=== PATIENT | female | born 1980 | race Caucasian/White ===

== ENCOUNTER 2016-07-23 09:18 | Day surgery (SDC) | payer OTHER ==
--- NOTE | 2016-07-20 15:49 | HP ---
DATE OF SURGERY: 07/23/2016 HISTORY OF PRESENT ILLNESS: The patient is a 35 year-old female who had a nodule on her right flank/chest wall area subcutaneous nodule that is increasing in size, increasing discomfort. Sore feeling at this time. It has been increasing in size the past few months since March. She desires excision as it is increasingly symptomatic. PAST SURGICAL HISTORY: Right hip surgery in the past. Right hip repair January 2016. Hysterectomy. Cholecystectomy. Excision of right breast in the past. Cholecystectomy. Colonoscopy in the past. MEDICATIONS: No current medications. ALLERGIES: NKDA. FAMILY HISTORY: Noncontributory. SOCIAL HISTORY: Half pack a day smoker, denies alcohol abuse. PHYSICAL EXAMINATION: GENERAL: No acute distress. HEENT: Sclerae nonicteric. NECK: No JVD. CHEST: Equal excursion, nonlabored breathing. CVS: Regular rate and rhythm. ABDOMEN: Soft, nontender. No peritoneal signs. In the right flank/chest wall area subcutaneous nodule question whether lipoma or other nodule. EXTREMITIES: No significant edema. NEURO: Alert, moving extremities symmetrically. No gross motor deficits noted. IMPRESSION: Increasingly symptomatic enlarging right flank/lower chest wall area nodule question whether lipoma or other etiology. I feel she would benefit from excisional biopsy. Risks and benefits explained in detail including but not limited to bleeding or infection, small risk of wound dehiscence possibly requiring packing, and the fact that she will have scar in the area, general risk of aches, pains, burning or numbness possible long-term or chronic in nature. She also understands what we excise if it ends up being lipoma particular one will not recur as it will be excised or she could get similar subcutaneous nodules or lipomas adjacent to or elsewhere on her body. She understands and agrees to the planned procedure. Will proceed with excisional biopsy right flank/chest wall nodule or lipoma as an outpatient.
[~2016-07-23 09:18] MED LIST: DIPRIVAN 200 MG/20 ML IV ONE; Lactated Ringers 1,000 ML IV ONE; Lactated Ringers 1,000 ML IV SCH; SUBLIMAZE 100 MCG/2 ML IV ONE; TORAdol 30 mg Injection IV ONE; Versed 2 MG/2 ML Injection IV ONE; XYLOCAINE 1% HCL 20 ML MDV ONE; Zofran 4 MG/2 ML VIAL IV ONE
[2016-07-23] MEDS ORDERED: Sensorcaine 0.25% 10 ML ONE (10:10)
[2016-07-23] MEDS ORDERED: KEFZOL 1 GM ONE (10:12)
[2016-07-23] MEDS ORDERED: SUBLIMAZE 100 MCG/2 ML ONE (11:41)
[2016-07-23] MEDS ORDERED: NORCO 5/325 MG PO PRN (12:35)
[2016-07-23] MEDS ORDERED: MORPHINE SULFATE 4 MG INJ IV PRN (12:36)
--- NOTE | 2016-07-23 13:05 | OP ---
SURGERY DATE/TIME: 07/23/2016 1057 PREOPERATIVE DIAGNOSIS: Enlarging right flank/chest wall symptomatic subcutaneous mass. POSTOPERATIVE DIAGNOSIS: Enlarging right flank/chest wall symptomatic subcutaneous mass. PROCEDURE: Excisional biopsy of right flank/chest wall lipoma (approximately 4 cm) with intermediate closure. SURGEON: Dr. Lang Enriquez. FLIGHT ATTENDANT RAMP: Kayla Jones, Medical Student III. ANESTHESIA: General. ESTIMATED BLOOD LOSS: Minimal. INDICATIONS: As noted above. Risks and benefits explained in detail and not limited to and consent obtained. DESCRIPTION OF PROCEDURE AND FINDINGS: The patient taken to the operating room. General anesthesia was induced. Flank area was prepped and draped in usual sterile fashion. After official time out and no disagreement with planned procedure, incision made diagonally over the subcutaneous mass. Dissection carried down circumferentially around this elongated lipomatous density. It was carefully dissected off the underlying fascia and measures about 4 cm in size. It was passed off for pathology. Good hemostasis noted. The wound was then closed intermediate fashion in layers with the deep superficial subcu closed down to the level of fascia with interrupted 3-0 Vicryl, skin closed with 4-0 Vicryl, Steri-Strips and sterile dressing applied. The patient tolerated the procedure well. There were no immediate complications. There was no family available to discuss findings with at this time. She was transferred to the recovery room stable condition.
[2016-07-23 13:24] VITALS: BP 123/71; PULSE 64; O2SAT 99
== END 2016-07-23 13:30 | disposition home or self-care (01) ==
LOC: SDC 09:18
PROVIDERS: ATTEND Surgery
PROC: 0HQ5XZZ Repair Chest Skin, External Approach (ICD-10-PCS; principal; 2016-07-23)
PROC: 0HB5XZX Excision of Chest Skin, External Approach, Diagnostic (ICD-10-PCS; 2016-07-23)
DX: D17.1 Benign lipomatous neoplasm of skin and subcutaneous tissue of trunk (principal); R22.2 Localized swelling, mass and lump, trunk; Z72.0 Tobacco use; R20.8 Other disturbances of skin sensation
CPT/HCPCS: 00300; 36415; J0690; J1885; J2250; J2270; J2405; J2704; J3010

== ENCOUNTER 2016-09-11 17:19 | Emergency (ER) | payer OTHER ==
[2016-09-11 18:33] LABS: BASOPHIL % 0.4 % (0.0-0.4); Eosinophil % 3.9 % (0.00-5.0); Granulocytes % 56.4 % (36.0-66.0); Lymphocytes % 33.8 % (24.0-44.0); Mean Platelet Volume 9.7 fl (6-9.5); Monocytes % 5.5 % (0.0-12.0); Platelet Count 233 K/mm3 (150-450); Red Blood Count 4.84 M/mm3 (4.1-5.4); Red Cell Distribution Width 11.9 % (11.5-14.0); White Blood Count 8.6 K/mm3 (4.0-10.5)
[2016-09-11 18:42] LABS: ALBUMIN 4.6 g/dL (3.4-5.0); ALKALINE PHOSPHATASE 67 U/L (46-116); ANION GAP 14.8 MEQ/L (5-15); BILIRUBIN,TOTAL 0.6 mg/dL (0.2-1.0); BLOOD UREA NITROGEN 7 mg/dL (9-20); CHLORIDE 106 mEq/L (98-107); Carbon Dioxide 28.7 mEq/L (21-32); Glucose 100 MG/DL (70-110); Potassium 3.9 mEq/L (3.5-5.1); SGOT/AST 12 U/L (15-37); SGPT/ALT 13 U/L (12-78); SODIUM 146 mEq/L (136-145); Total Protein 7.8 gm/dL (6.4-8.2)
[2016-09-11 18:43] LABS: ACETAMINOPHEN < 2.0 ug/ml (10-30)
[2016-09-11 19:01] LABS: COMPLETE URINE MICROSCOPIC? YES; Collection Type CLEAN CATCH; Epithelial Cells FEW /HPF (FEW); Mucus SLIGHT /HPF (NEGATIVE)
[2016-09-11] MEDS ORDERED: ANTIVERT 25 MG PO ONE (19:19)
--- NOTE | 2016-09-11 19:26 | ERPHSYRPT ---
- History of Present Illness Time Seen by Provider: 09/11/16 19:05 Source: patient Exam Limitations: no limitations Patient Subjective Stated Complaint: PT REPORTS ALL OVER WEAKNESS-STATES THAT SHE GETS DIZZY IN THE SHOWER-STATES THAT SHE CAN NOT EAT OR DRINK ANYTHING-HAS NOT URINATED IN 2 DAYS-STATES THAT SHE HAS LOST 30 LBS-REPORTS HEADACHE BEGINNING 2 DAYS AGO-DENIES N/V/D-DENIES NUMBNESS OR TINLGING--PT STATES THAT SHE IS DEPRESSED SINCE HER DIVORCE BEGINNING A COUPLE OF MONTHS AGO Triage Nursing Assessment: PT PINK WARM ET DRY-A & O X 3-MOVING ALL EXTREMITIES WITH EASE-RESP EASY ET NONLABORED-PUPILS REACTIVE-ANSWERING ALL QUESTIONS WITH EASE-PT TEARFUL CRYING UPSET ET ANXIOUS DURING TRIAGE-PT DEFERRING QUESTIONS TO MOTHER NOTED ET ASKED TO STOP Physician History: PT STATES SHE HAS BEEN UNDER STRESS FOR THE PAST 6 MONTHS, IS GOING THROUGH A DIVORCE AND HAS 5 CHILDREN BY HER . FOR THE PAST 3 MONTHS PT HAS LOST 30# , HAS HAD INTERMITTENT SHORTNESS OF AIR AND AN INTERMITTENT FRONTAL HEADACHE WHICH HAS BEEN CONSTANT SINCE YESTERDAY AM. FOR THE PAST WEEK PT HAS NOT EATEN ANY SOLID FOOD. FOR THE PAST 2 DAYS PT HAS HAD DIZZINESS AND INSOMNIA. PT DENIES SUICIDAL AND HOMICIDAL IDEATION. Allergies/Adverse Reactions: No Known Drug Allergies Allergy (Verified 09/11/16 17:54) Home Medications: No Home Meds 1 ea MC UD 09/11/16 [History] Hx Tetanus, Diphtheria Vaccination/Date Given: Yes Hx Influenza Vaccination/Date Given: No Hx Pneumococcal Vaccination/Date Given: No Immunizations Up to Date: Yes - Review of Systems Constitutional: Weight Loss Respiratory: Dyspnea Abdominal/Gastrointestinal: No Abdominal Pain, No Vomiting, No Diarrhea Neurological: Dizziness, Headache Psychological: Other (STRESS; INSOMNIA.), No Suicidal Ideations, No Homicidal Ideations All Other Systems: Reviewed and Negative - Past Medical History Pertinent Past Medical History: Yes Neurological History: No Pertinent History ENT History: No Pertinent History Cardiac History: No Pertinent History Respiratory History: No Pertinent History Endocrine Medical History: No Pertinent History Musculoskeletal History: Other GI Medical History: Gallbladder Disease History: No Pertinent History Psycho-Social History: No Pertinent History Female Reproductive Disorders: Other Other Medical History: tubal times 2. hysterectomy 2009 - Past Surgical History Past Surgical History: Yes Neuro Surgical History: No Pertinent History Cardiac: No Pertinent History Respiratory: No Pertinent History Gastrointestinal: Cholecystectomy Genitourinary: No Pertinent History Musculoskeletal: Orthopedic Surgery Female Surgical History: Hysterectomy, Tubal Ligation, Other Other Surgical History: right hip labram repair 2016 milk duct removed from right breast noncancerouls - Social History Smoking Status: Current every day smoker How long have you smoked: 15 yrs Exposure to second hand smoke: No Drug Use: none Patient Lives Alone: No - Female History Hx Last Menstrual Period: HYSTERECTOMY Hx Now: No - Nursing Vital Signs Nursing Vital Signs: Initial Vital Signs Temperature 98.1 F Temperature Source Oral Pulse Rate 55 Respiratory Rate 16 Blood Pressure [] 112/51 Pain Intensity 8 - Physical Exam General Appearance: alert, anxiety Eye Exam: PERRL/EOMI, eyes nml inspection Ears, Nose, Throat Exam: TMs normal, pharynx normal, moist mucous membranes Neck Exam: normal inspection Respiratory Exam: lungs clear, airway intact Cardiovascular Exam: normal heart sounds Gastrointestinal/Abdomen Exam: soft, normal bowel sounds, No distention Back Exam: normal range of motion Extremity Exam: normal inspection, No pedal edema Neurologic Exam: alert, cooperative, sensation nml, No motor deficits Skin Exam: warm, dry SpO2 Interpretation: normal SpO2: 97 Oxygen Delivery: Room Air - Course Nursing assessment & vital signs reviewed: Yes EKG Interpreted by Me: RATE (67), Sinus Rhythm, NORMAL AXIS, NORMAL INTERVALS - Radiology Exams Chest X-ray Interpretation: Interpreted by me, No Pneumonia - CT Exams Head CT Interpretation: Discussed w/radiologist (STABLE NORMAL HEAD CT COMPARED WITH 06/22/15.) Ordered Tests: Active Orders 24 hr Category Date Time Status Clean Catch Urine Specimen STAT Care 09/11/16 18:21 Active EKG-ER Only STAT Care 09/11/16 19:02 Active IV Insertion STAT Care 09/11/16 18:21 Active CHEST 2 VIEWS (PA AND LAT) Stat Exams 09/11/16 19:18 Taken HEAD WITHOUT CONTRAST [CT] Stat Exams 09/11/16 18:22 Taken ACETAMINOPHEN Stat Lab 09/11/16 17:45 Completed AMYLASE Stat Lab 09/11/16 18:00 Completed CBC W DIFF Stat Lab 09/11/16 17:45 Completed CMP Stat Lab 09/11/16 17:45 Completed Ethyl Alcohol,Urine Stat Lab 09/11/16 18:30 Completed HCG QUALITATIVE,SERUM Stat Lab 09/11/16 18:00 Completed LIPASE Stat Lab 09/11/16 18:00 Completed MAG [MAGNESIUM] Stat Lab 09/11/16 18:00 Completed SALICYLATE Stat Lab 09/11/16 17:45 Completed T4 Stat Lab 09/11/16 18:00 Completed TROPONIN Stat Lab 09/11/16 18:00 Completed TSH [TSH, 3RD Generation] Stat Lab 09/11/16 18:00 Completed UA W/ MICROSCOPIC Stat Lab 09/11/16 18:30 Completed Urine Triage Profile Stat Lab 09/11/16 18:30 Completed Medication Summary Discontinued Medications Generic Name Dose Route Start Last Admin Trade Name Freq PRN Reason Stop Dose Admin Hydromorphone HCl 1 mg 09/11/16 19:34 09/11/16 19:41 Hydromorphone 1 Mg/Ml Ampule IV 09/11/16 19:35 1 mg STAT ONE Administration Hydromorphone HCl Confirm 09/11/16 19:36 Hydromorphone 1 Mg/Ml Ampule Administered 09/11/16 19:37 Dose 1 mg .ROUTE .STK-MED ONE Meclizine HCl 25 mg 09/11/16 19:19 09/11/16 19:31 Antivert 25 Mg PO 09/11/16 19:20 25 mg STAT ONE Administration Meclizine HCl Confirm 09/11/16 19:28 Antivert 25 Mg Administered 09/11/16 19:29 Dose 25 mg .ROUTE .STK-MED ONE Promethazine HCl 12.5 mg 09/11/16 19:34 09/11/16 19:41 Phenergan 25 Mg Inj IV 09/11/16 19:35 12.5 mg STAT ONE Administration Promethazine HCl Confirm 09/11/16 19:36 Phenergan 25 Mg Inj Administered 09/11/16 19:37 Dose 25 mg .ROUTE .STK-MED ONE Lab/Rad Data: Laboratory Result Diagrams 09/11/16 17:45 09/11/16 17:45 Laboratory Results 09/11/16 09/11/16 09/11/16 Range/Units 18:30 18:30 18:30 WBC (4.0-10.5) K/mm3 RBC (4.1-5.4) M/mm3 Hgb (12.0-16.0) gm/dl Hct (35-47) % MCV (78-100) fl MCH (26-32) pg MCHC (32-36) g/dl RDW (11.5-14.0) % Plt Count (150-450) K/mm3 MPV (6-9.5) fl Gran % (36.0-66.0) % Lymphocytes % (24.0-44.0) % Monocytes % (0.0-12.0) % Eosinophils % (0.00-5.0) % Basophils % (0.0-0.4) % Basophils # (0-0.4) Sodium (136-145) mEq/L Potassium (3.5-5.1) mEq/L Chloride (98-107) mEq/L Carbon Dioxide (21-32) mEq/L Anion Gap (5-15) MEQ/L BUN (9-20) mg/dL Creatinine (0.55-1.30) mg/dl Estimated GFR ML/MIN Glucose (70-110) MG/DL Calcium (8.5-10.1) mg/dL Magnesium (1.8-2.4) mg/dL Total Bilirubin (0.2-1.0) mg/dL AST (15-37) U/L ALT (12-78) U/L Alkaline Phosphatase (46-116) U/L Troponin I (0.000-0.056) ng/ml Serum Total Protein (6.4-8.2) gm/dL Albumin (3.4-5.0) g/dL Amylase (25-115) U/L Lipase (73-393) U/L Thyroxine (T4) (4.7-13.3) UG/DL TSH 3rd Generation (0.358-3.740) mIU/L Serum , Qual (Negative) Ur Collection Type CLEAN CATCH Urine Color YELLOW (YELLOW) Urine Appearance CLOUDY (CLEAR) Urine pH 9.0 (5-6) Ur Specific Gary 1.015 (1.005-1.025) Urine Protein 30 (Negative) Urine Glucose (UA) NEGATIVE (NEGATIVE) mg/dL Urine Ketones NEGATIVE (NEGATIVE) Urine Nitrite NEGATIVE (NEGATIVE) Urine Bilirubin NEGATIVE (NEGATIVE) Urine Urobilinogen 1 (0-1) mg/dL Urine WBC (Auto) NEGATIVE (NEGATIVE) Urine RBC (Auto) NEGATIVE (0-5) Colten/ul Ur Epithelial Cells FEW (FEW) /HPF Amorphous Crystals MANY (NEGATIVE) /HPF Urine Mucus SLIGHT (NEGATIVE) /HPF Salicylates (2.8-20.0) mg/dl Urine Opiates Level NEG. (NEGATIVE) Ur Methadone NEG. (NEGATIVE) Acetaminophen (10-30) ug/ml Urine Barbiturates NEG. (NEGATIVE) Ur Phencyclidine (PCP) NEG. (NEGATIVE) Urine Amphetamine NEG. (NEGATIVE) U Benzodiazepine Level NEG. (NEGATIVE) Urine Cocaine NEG. (NEGATIVE) Urine Marijuana (THC) NEG. (NEGATIVE) Urine Ethyl Alcohol 3 (0.00-20) mg/dl Specimen Received 09/11/16:1830 09/11/16 09/11/16 09/11/16 Range/Units 18:00 18:00 18:00 WBC (4.0-10.5) K/mm3 RBC (4.1-5.4) M/mm3 Hgb (12.0-16.0) gm/dl Hct (35-47) % MCV (78-100) fl MCH (26-32) pg MCHC (32-36) g/dl RDW (11.5-14.0) % Plt Count (150-450) K/mm3 MPV (6-9.5) fl Gran % (36.0-66.0) % Lymphocytes % (24.0-44.0) % Monocytes % (0.0-12.0) % Eosinophils % (0.00-5.0) % Basophils % (0.0-0.4) % Basophils # (0-0.4) Sodium (136-145) mEq/L Potassium (3.5-5.1) mEq/L Chloride (98-107) mEq/L Carbon Dioxide (21-32) mEq/L Anion Gap (5-15) MEQ/L BUN (9-20) mg/dL Creatinine (0.55-1.30) mg/dl Estimated GFR ML/MIN Glucose (70-110) MG/DL Calcium (8.5-10.1) mg/dL Magnesium 2.1 (1.8-2.4) mg/dL Total Bilirubin (0.2-1.0) mg/dL AST (15-37) U/L ALT (12-78) U/L Alkaline Phosphatase (46-116) U/L Troponin I < 0.017 (0.000-0.056) ng/ml Serum Total Protein (6.4-8.2) gm/dL Albumin (3.4-5.0) g/dL Amylase 50 (25-115) U/L Lipase 107 (73-393) U/L Thyroxine (T4) 7.9 (4.7-13.3) UG/DL TSH 3rd Generation 1.199 (0.358-3.740) mIU/L Serum , Qual NEGATIVE (Negative) Ur Collection Type Urine Color (YELLOW) Urine Appearance (CLEAR) Urine pH (5-6) Ur Specific Gary (1.005-1.025) Urine Protein (Negative) Urine Glucose (UA) (NEGATIVE) mg/dL Urine Ketones (NEGATIVE) Urine Nitrite (NEGATIVE) Urine Bilirubin (NEGATIVE) Urine Urobilinogen (0-1) mg/dL Urine WBC (Auto) (NEGATIVE) Urine RBC (Auto) (0-5) Colten/ul Ur Epithelial Cells (FEW) /HPF Amorphous Crystals (NEGATIVE) /HPF Urine Mucus (NEGATIVE) /HPF Salicylates (2.8-20.0) mg/dl Urine Opiates Level (NEGATIVE) Ur Methadone (NEGATIVE) Acetaminophen (10-30) ug/ml Urine Barbiturates (NEGATIVE) Ur Phencyclidine (PCP) (NEGATIVE) Urine Amphetamine (NEGATIVE) U Benzodiazepine Level (NEGATIVE) Urine Cocaine (NEGATIVE) Urine Marijuana (THC) (NEGATIVE) Urine Ethyl Alcohol (0.00-20) mg/dl Specimen Received 09/11/16 09/11/16 09/11/16 Range/Units 17:45 17:45 17:45 WBC 8.6 (4.0-10.5) K/mm3 RBC 4.84 (4.1-5.4) M/mm3 Hgb 15.0 (12.0-16.0) gm/dl Hct 43.1 (35-47) % MCV 89.0 (78-100) fl MCH 31.0 (26-32) pg MCHC 34.8 (32-36) g/dl RDW 11.9 (11.5-14.0) % Plt Count 233 (150-450) K/mm3 MPV 9.7 H (6-9.5) fl Gran % 56.4 (36.0-66.0) % Lymphocytes % 33.8 (24.0-44.0) % Monocytes % 5.5 (0.0-12.0) % Eosinophils % 3.9 (0.00-5.0) % Basophils % 0.4 (0.0-0.4) % Basophils # 0.03 (0-0.4) Sodium 146 H (136-145) mEq/L Potassium 3.9 (3.5-5.1) mEq/L Chloride 106 (98-107) mEq/L Carbon Dioxide 28.7 (21-32) mEq/L Anion Gap 14.8 (5-15) MEQ/L BUN 7 L (9-20) mg/dL Creatinine 0.77 (0.55-1.30) mg/dl Estimated GFR > 60 ML/MIN Glucose 100 (70-110) MG/DL Calcium 8.9 (8.5-10.1) mg/dL Magnesium (1.8-2.4) mg/dL Total Bilirubin 0.6 (0.2-1.0) mg/dL AST 12 L (15-37) U/L ALT 13 (12-78) U/L Alkaline Phosphatase 67 (46-116) U/L Troponin I (0.000-0.056) ng/ml Serum Total Protein 7.8 (6.4-8.2) gm/dL Albumin 4.6 (3.4-5.0) g/dL Amylase (25-115) U/L Lipase (73-393) U/L Thyroxine (T4) (4.7-13.3) UG/DL TSH 3rd Generation (0.358-3.740) mIU/L Serum , Qual (Negative) Ur Collection Type Urine Color (YELLOW) Urine Appearance (CLEAR) Urine pH (5-6) Ur Specific Gary (1.005-1.025) Urine Protein (Negative) Urine Glucose (UA) (NEGATIVE) mg/dL Urine Ketones (NEGATIVE) Urine Nitrite (NEGATIVE) Urine Bilirubin (NEGATIVE) Urine Urobilinogen (0-1) mg/dL Urine WBC (Auto) (NEGATIVE) Urine RBC (Auto) (0-5) Colten/ul Ur Epithelial Cells (FEW) /HPF Amorphous Crystals (NEGATIVE) /HPF Urine Mucus (NEGATIVE) /HPF Salicylates < 2.8 L (2.8-20.0) mg/dl Urine Opiates Level (NEGATIVE) Ur Methadone (NEGATIVE) Acetaminophen < 2.0 L (10-30) ug/ml Urine Barbiturates (NEGATIVE) Ur Phencyclidine (PCP) (NEGATIVE) Urine Amphetamine (NEGATIVE) U Benzodiazepine Level (NEGATIVE) Urine Cocaine (NEGATIVE) Urine Marijuana (THC) (NEGATIVE) Urine Ethyl Alcohol (0.00-20) mg/dl Specimen Received - Progress Progress Note: 09/11/16 20:13 PT REFUSES TELE-MENTAL. - Departure Time of Disposition: 20:14 Departure Disposition: Home Clinical Impression: ANXIETY, HEADACHE, DIZZINESS Condition: Fair Critical Care Time: No Instructions: Anxiety -- Adult Additional Instructions: FOLLOW UP WITH PRIVATE DOCTOR TOMORROW. Prescriptions: Meclizine HCl 25 mg [Antivert 25 mg] 25 mg PO Q8HPRN PRN #20 tablet PRN Reason: Dizziness
[2016-09-11] MEDS ORDERED: ANTIVERT 25 MG ONE (19:28)
[2016-09-11] MEDS ORDERED: Hydromorphone 1 mg/ml Ampule IV ONE (19:34)
[2016-09-11] MEDS ORDERED: Phenergan 25 MG INJ IV ONE (19:34)
[2016-09-11] MEDS ORDERED: Phenergan 25 MG INJ ONE (19:36)
[2016-09-11] MEDS ORDERED: Hydromorphone 1 mg/ml Ampule ONE (19:36)
[2016-09-11 19:48] LABS: MAGNESIUM 2.1 mg/dL (1.8-2.4)
[2016-09-11 20:11] VITALS: BP 112/51; PULSE 55
[2016-09-11 20:14] VITALS: O2SAT 97
--- NOTE | 2016-09-12 08:31 | XRAY ---
Indication: Headache, dizziness, and nausea. Multiple contiguous axial images obtained through the head without contrast. Comparison: June 22, 2015. Again normal appearing brain parenchyma, ventricles, and bony calvarium. Visualized paranasal sinuses and mastoid air cells are pneumatized and clear. Impression: Stable normal CT head without contrast exam. CT DI 71.08
--- NOTE | 2016-09-12 08:53 | XRAY ---
Indication: Short of breath. Comparison: April 17, 2016. PA/lateral chest again demonstrates normal heart, lungs, and bony thorax.
== END 2016-09-11 20:26 | disposition home or self-care (01) ==
LOC: ED 17:19
DX: F41.9 Anxiety disorder, unspecified (principal); R51 Headache; R42 Dizziness and giddiness; F51.02 Adjustment insomnia; R06.00 Dyspnea, unspecified
CPT/HCPCS: 36000; 36415; 70450; 71020; 80053; 80307; 80320; 81000; 82150; 83690; 83735; 83986; 84436; 84443; 84484; 84703; 85025; 93005; 96374; 96375; 99284; 99285; G0481; J1170; J2550; A9270-GY

== ENCOUNTER 2016-10-22 10:08 | Emergency (ER) | payer OTHER ==
--- NOTE | 2016-10-22 10:45 | ERPHSYRPT ---
- History of Present Illness Time Seen by Provider: 10/22/16 10:32 Source: patient Exam Limitations: no limitations Patient Subjective Stated Complaint: PT REPORTS COUGH-N/V/D-ABD SORENESS- REPORTS VOMITING GALLBLADDER-DAUGHTER HAS JUST BEEN DX WITH FLU B ET MONO Triage Nursing Assessment: PT PINK WARM ET [id number] ALL QUESTIONS CORRECTLY EXCEPT WHAT MEDS SHE TOOK THIS AM-RESP FAST BUT NONLABORED-PUPILS RESPONSIVE-MOVING ALL EXTREMITITES WITH EASE Physician History: The patient is a 36-year-old female with her mother complaining that she developed a headache and a cough 4-5 days ago. The headache is worsening. She states she's been feverish with a temperature of up to 103. For the past 2 days she's had nausea vomiting and diarrhea. Her daughter was diagnosed with influenza B 5 to 7 days ago. Her daughter is also diagnosed with mono. The patient's past medical history is significant for depression. Timing/Duration: day(s) (5) Cough Quality/Degree: moderate, dry cough Possible Cause: occasional episodes, smoke exposure Modifying Factors: Improves With: activity, coughing Associated Symptoms: fever, cough, headache, muscle aches, nasal congestion, sore throat Allergies/Adverse Reactions: No Known Drug Allergies Allergy (Verified 10/22/16 10:23) Home Medications: Venlafaxine HCl [Effexor] 75 mg PO HS 10/22/16 [History] Venlafaxine HCl [Effexor] 175 mg PO DAILY 10/22/16 [History] Hx Tetanus, Diphtheria Vaccination/Date Given: No Hx Influenza Vaccination/Date Given: No Hx Pneumococcal Vaccination/Date Given: No Immunizations Up to Date: Yes - Review of Systems Constitutional: Fever Eyes: Eye Pain Ears, Nose, & Throat: Nose Congestion, Nose Discharge, Throat Pain Respiratory: Cough Cardiac: No Chest Pain, No Edema, No Syncope Abdominal/Gastrointestinal: Nausea, Vomiting, Diarrhea Genitourinary Symptoms: No Dysuria Musculoskeletal: No Back Pain, No Neck Pain Skin: No Rash Neurological: No Dizziness, No Focal Weakness, No Sensory Changes Psychological: Depression Endocrine: No Symptoms Hematologic/Lymphatic: No Symptoms Immunological/Allergic: No Symptoms All Other Systems: Reviewed and Negative - Past Medical History Pertinent Past Medical History: Yes Neurological History: No Pertinent History ENT History: No Pertinent History Cardiac History: No Pertinent History Respiratory History: No Pertinent History Endocrine Medical History: No Pertinent History Musculoskeletal History: Other GI Medical History: Gallbladder Disease History: No Pertinent History Psycho-Social History: No Pertinent History Female Reproductive Disorders: Other Other Medical History: tubal times 2. hysterectomy 2010 - Past Surgical History Past Surgical History: Yes Neuro Surgical History: No Pertinent History Cardiac: No Pertinent History Respiratory: No Pertinent History Gastrointestinal: Cholecystectomy Genitourinary: No Pertinent History Musculoskeletal: Orthopedic Surgery Female Surgical History: Hysterectomy, Tubal Ligation, Other Other Surgical History: right hip labram repair 2016 milk duct removed from right breast noncancerouls - Social History Smoking Status: Current every day smoker How long have you smoked: YRS Exposure to second hand smoke: Yes Drug Use: none Patient Lives Alone: No - Female History Hx Last Menstrual Period: HYSTERECTOMY Hx Now: No - Nursing Vital Signs Nursing Vital Signs: Initial Vital Signs Temperature 97.7 F Temperature Source Oral Pulse Rate 74 Respiratory Rate 18 Blood Pressure [] 107/54 Pain Intensity 9 - Physical Exam General Appearance: mild distress Eye Exam: PERRL/EOMI, eyes nml inspection Ears, Nose, Throat Exam: normal ENT inspection, TMs normal, pharynx normal, moist mucous membranes Neck Exam: normal inspection, non-tender, supple, full range of motion Respiratory Exam: normal breath sounds, lungs clear, No respiratory distress Cardiovascular Exam: regular rate/rhythm, normal heart sounds Gastrointestinal/Abdomen Exam: tenderness (epigastric) Pelvic Exam: not done Rectal Exam: not done Back Exam: normal inspection, No CVA tenderness, No vertebral tenderness Extremity Exam: normal inspection, normal range of motion Neurologic Exam: alert, 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, cooperative, normal mood/affect, sensation nml, No motor deficits Skin Exam: normal color, warm, dry, No rash Lymphatic Exam: No adenopathy SpO2 Interpretation: normal SpO2: 100 Oxygen Delivery: Room Air - Radiology Exams Chest X-ray Interpretation: Teleradiologist Report, Negative (per Dr Mello) Ordered Tests: Active Orders 24 hr Category Date Time Status IV Insertion STAT Care 10/22/16 10:48 Active CHEST 2 VIEWS (PA AND LAT) Stat Exams 10/22/16 10:50 Completed BMP Stat Lab 10/22/16 11:10 Completed CBC W DIFF Stat Lab 10/22/16 11:10 Completed Price Screen Stat Lab 10/22/16 11:10 Completed UA Stat Lab 10/22/16 10:49 Ordered Medication Summary Discontinued Medications Generic Name Dose Route Start Last Admin Trade Name Kelly PRN Reason Stop Dose Admin Sodium Chloride 1,000 mls @ 999 mls/hr 10/22/16 10:48 10/22/16 11:10 Sodium Chloride 0.9% 1000 Ml IV 10/22/16 11:48 999 mls/hr .Q1H1M STA Administration Sodium Chloride Confirm 10/22/16 11:08 Sodium Chloride 0.9% 1000 Ml Administered 10/22/16 11:09 Dose 1,000 mls @ ud .ROUTE .STK-MED ONE Ketorolac Tromethamine 30 mg 10/22/16 10:51 10/22/16 11:10 Toradol 30 Mg Injection IV 10/22/16 10:52 30 mg STAT ONE Administration Ketorolac Tromethamine Confirm 10/22/16 11:08 Toradol 30 Mg Injection Administered 10/22/16 11:09 Dose 30 mg .ROUTE .STK-MED ONE Ondansetron HCl 4 mg 10/22/16 10:52 10/22/16 11:10 Zofran 4 Mg/2 Ml Vial IV 10/22/16 10:53 4 mg STAT ONE Administration Ondansetron HCl Confirm 10/22/16 11:08 Zofran 4 Mg/2 Ml Vial Administered 10/22/16 11:09 Dose 4 mg .ROUTE .STK-MED ONE Potassium Chloride 20 meq 10/22/16 12:20 10/22/16 12:27 Klor Con 10 Meq PO 10/22/16 12:21 20 meq STAT ONE Administration Potassium Chloride Confirm 10/22/16 12:26 Klor Con 10 Meq Administered 10/22/16 12:27 Dose 20 meq PO .STK-MED ONE Lab/Rad Data: Laboratory Result Diagrams 10/22/16 11:10 10/22/16 11:10 Laboratory Results 10/22/16 10/22/16 10/22/16 Range/Units 11:10 11:10 11:10 WBC (4.0-10.5) K/mm3 RBC (4.1-5.4) M/mm3 Hgb (12.0-16.0) gm/dl Hct (35-47) % MCV (78-100) fl MCH (26-32) pg MCHC (32-36) g/dl RDW (11.5-14.0) % Plt Count (150-450) K/mm3 MPV (6-9.5) fl Gran % (36.0-66.0) % Lymphocytes % (24.0-44.0) % Monocytes % (0.0-12.0) % Eosinophils % (0.00-5.0) % Basophils % (0.0-0.4) % Basophils # (0-0.4) Sodium 138 (136-145) mEq/L Potassium 3.3 L (3.5-5.1) mEq/L Chloride 99 (98-107) mEq/L Carbon Dioxide 27.7 (21-32) mEq/L Anion Gap 14.3 (5-15) MEQ/L BUN 14 (9-20) mg/dL Creatinine 0.85 (0.55-1.30) mg/dl Estimated GFR > 60 ML/MIN Glucose 86 (70-110) MG/DL Calcium 9.2 (8.5-10.1) mg/dL Monoscreen NEGATIVE (Negative) Influenza Type A Ag NEGATIVE (NEGATIVE) Influenza Type B Ag POSITIVE (NEGATIVE) RSV (PCR) NEGATIVE (Negative) 10/22/16 Range/Units 11:10 WBC 3.5 L (4.0-10.5) K/mm3 RBC 5.09 (4.1-5.4) M/mm3 Hgb 15.7 (12.0-16.0) gm/dl Hct 44.3 (35-47) % MCV 87.0 (78-100) fl MCH 30.8 (26-32) pg MCHC 35.4 (32-36) g/dl RDW 11.9 (11.5-14.0) % Plt Count 107 L (150-450) K/mm3 MPV 10.4 H (6-9.5) fl Gran % 48.4 (36.0-66.0) % Lymphocytes % 44.4 H (24.0-44.0) % Monocytes % 6.9 (0.0-12.0) % Eosinophils % 0.3 (0.00-5.0) % Basophils % 0.0 (0.0-0.4) % Basophils # 0 (0-0.4) Sodium (136-145) mEq/L Potassium (3.5-5.1) mEq/L Chloride (98-107) mEq/L Carbon Dioxide (21-32) mEq/L Anion Gap (5-15) MEQ/L BUN (9-20) mg/dL Creatinine (0.55-1.30) mg/dl Estimated GFR ML/MIN Glucose (70-110) MG/DL Calcium (8.5-10.1) mg/dL Monoscreen (Negative) Influenza Type A Ag (NEGATIVE) Influenza Type B Ag (NEGATIVE) RSV (PCR) (Negative) - Progress Progress: improved Air Movement: good Blood Culture(s) Obtained: No Antibiotics given: No Counseled pt/family regarding: lab results, diagnosis, rad results - Departure Time of Disposition: 12:48 Departure Disposition: Home Clinical Impression: Influenza B, Hypokalemia, Vomiting and diarrhea Condition: Stable Critical Care Time: No Additional Instructions: You have an influenza B infection. You were treated with Zofran 4 mg IV and fluids by IV in the ER. You were also given Toradol 30 mg IV. Your serum potassium level was mildly low and you were given potassium 20 mEq. Take Zofran 4 mg every 6 hours as needed for nausea and vomiting. Start with a clear liquid diet and advance as tolerated. Take Tylenol and ibuprofen as needed. Follow-up as needed. Prescriptions: Ondansetron [Zofran Odt] 4 mg PO Q6H PRN PRN #10 tab.rapdis PRN Reason: Nausea
[2016-10-22] MEDS ORDERED: Sodium Chloride 0.9% 1000 ML 1,000 ML IV STA (10:48)
[2016-10-22] MEDS ORDERED: TORAdol 30 mg Injection IV ONE (10:51)
[2016-10-22] MEDS ORDERED: Zofran 4 MG/2 ML VIAL IV ONE (10:52)
--- NOTE | 2016-10-22 11:06 | XRAY ---
Indication: Cough. Flulike symptoms. Comparison: September 11, 2016. PA/lateral chest again demonstrates normal heart, lungs, and bony thorax.
[2016-10-22] MEDS ORDERED: TORAdol 30 mg Injection ONE (11:08)
[2016-10-22] MEDS ORDERED: Zofran 4 MG/2 ML VIAL ONE (11:08)
[2016-10-22] MEDS ORDERED: Sodium Chloride 0.9% 1000 ML 1,000 ML ONE (11:08)
[2016-10-22 11:22] LABS: Eosinophil % 0.3 % (0.00-5.0); Granulocytes % 48.4 % (36.0-66.0); Lymphocytes % 44.4 % (24.0-44.0); Mean Corpuscular Hemoglobin 30.8 pg (26-32); Mean Platelet Volume 10.4 fl (6-9.5); Monocytes % 6.9 % (0.0-12.0); Platelet Count 107 K/mm3 (150-450); Red Blood Count 5.09 M/mm3 (4.1-5.4); Red Cell Distribution Width 11.9 % (11.5-14.0); White Blood Count 3.5 K/mm3 (4.0-10.5)
[2016-10-22 11:32] LABS: ANION GAP 14.3 MEQ/L (5-15); BLOOD UREA NITROGEN 14 mg/dL (9-20); CHLORIDE 99 mEq/L (98-107); Carbon Dioxide 27.7 mEq/L (21-32); Glucose 86 MG/DL (70-110); Potassium 3.3 mEq/L (3.5-5.1); SODIUM 138 mEq/L (136-145)
[2016-10-22] MEDS ORDERED: Klor Con 10 MEQ PO ONE ×2 (12:20→12:26)
[2016-10-22 13:05] VITALS: O2SAT 99
[2016-10-22 13:12] VITALS: BP 136/68; PULSE 72
== END 2016-10-22 13:12 | disposition home or self-care (01) ==
LOC: ED 10:08
DX: J11.1 Influenza due to unidentified influenza virus with other respiratory manifestations (principal); E87.6 Hypokalemia; R11.2 Nausea with vomiting, unspecified; R19.7 Diarrhea, unspecified; R05 Cough; R51 Headache
CPT/HCPCS: 36000; 36415; 71020; 80048; 85025; 86308; 87631; 96360; 96374; 96375; 99284; J1885; J2405; A9270-GY

== ENCOUNTER 2017-01-27 15:47 | Emergency (ER) | payer OTHER ==
[2017-01-27] MEDS ORDERED: Sodium Chloride 0.9% 1000 ML 1,000 ML IV STA ×2 (16:13→17:59)
[2017-01-27] MEDS ORDERED: Zofran 4 MG/2 ML VIAL IV ONE (16:13)
[2017-01-27] MEDS ORDERED: Sodium Chloride 0.9% 1000 ML 1,000 ML ONE ×2 (16:18→18:00)
[2017-01-27] MEDS ORDERED: Zofran 4 MG/2 ML VIAL ONE (16:18)
--- NOTE | 2017-01-27 16:20 | ERPHSYRPT ---
- History of Present Illness Time Seen by Provider: 01/27/17 16:05 Source: patient Exam Limitations: clinical condition Patient Subjective Stated Complaint: states she thinks she has a uti. left flank pain for two weeks. states had uti one month ago but didn't get treated for it. Triage Nursing Assessment: ambulated to room without difficulty. skin w/d, color normal, resp easy. patient lying in bed with eyes closed. urine is slightly cloudy, yellow Physician History: PATIENT COMPLAINS OF LEFT FLANK PAIN FOR 2 WEEKS, FOUL URINE ODOR, FREQUENCY, DYSURIA FOR 1 WEEK. STATES PAIN IS SEVERE. DENIES ASSOCIATED FEVER OR CHILLS. Timing/Duration: week(s) Activites at Onset: none Quality: throbbing Onset Location: left flank Pain Radiation: none Severity of Pain-Max: severe Severity of Pain-Current: severe Sexual intercourse history: non-contributory Allergies/Adverse Reactions: No Known Drug Allergies Allergy (Verified 01/27/17 15:58) Home Medications: Alprazolam 1 mg [Xanax 1 mg] 1 mg PO TID PRN 01/27/17 [History] Aspirin [[place] Aspirin] 81 mg PO DAILY 01/27/17 [History] Duloxetine HCl 30 mg [Cymbalta 30 MG Capsule] 30 mg PO DAILY 01/27/17 [ History] Estradiol 1 mg [Estrace 1 mg] 4 mg PO DAILY 01/27/17 [History] Hx Tetanus, Diphtheria Vaccination/Date Given: No Hx Influenza Vaccination/Date Given: No Hx Pneumococcal Vaccination/Date Given: No - Review of Systems Constitutional: Weakness, No Fever, No Chills Eyes: No Symptoms Ears, Nose, & Throat: No Symptoms Respiratory: No Symptoms, No Cough, No Dyspnea Cardiac: No Symptoms, No Chest Pain, No Edema, No Syncope Abdominal/Gastrointestinal: Abdominal Pain, No Nausea, No Vomiting, No Diarrhea Genitourinary Symptoms: Other (LEFT FLANK PAIN), No Dysuria Musculoskeletal: No Back Pain, No Neck Pain Skin: No Rash Neurological: No Dizziness, No Focal Weakness, No Sensory Changes Psychological: No Symptoms Endocrine: No Symptoms All Other Systems: Reviewed and Negative - Past Medical History Pertinent Past Medical History: Yes Neurological History: No Pertinent History ENT History: No Pertinent History Cardiac History: No Pertinent History Respiratory History: No Pertinent History Endocrine Medical History: No Pertinent History Musculoskeletal History: Other GI Medical History: Gallbladder Disease History: No Pertinent History Psycho-Social History: No Pertinent History Female Reproductive Disorders: Other Other Medical History: tubal times 2. hysterectomy 2010 - Past Surgical History Past Surgical History: Yes Neuro Surgical History: No Pertinent History Cardiac: No Pertinent History Respiratory: No Pertinent History Gastrointestinal: Cholecystectomy Genitourinary: No Pertinent History Musculoskeletal: Orthopedic Surgery Female Surgical History: Hysterectomy, Tubal Ligation, Other Other Surgical History: right hip labram repair 2016 milk duct removed from right breast noncancerouls - Social History Smoking Status: Current every day smoker How long have you smoked: YRS Exposure to second hand smoke: Yes Drug Use: none Patient Lives Alone: No - Female History Hx Now: No - Nursing Vital Signs Nursing Vital Signs: Initial Vital Signs Temperature 98.7 F 01/27/17 15:54 Pulse Rate 97 H 01/27/17 15:54 Respiratory Rate 16 01/27/17 15:54 Blood Pressure 124/72 01/27/17 15:54 O2 Sat by Pulse Oximetry 98 01/27/17 15:54 Pain Scale Pain Intensity 4 - Physical Exam General Appearance: mild distress Eye Exam: PERRL/EOMI, eyes nml inspection Ears, Nose, Throat Exam: normal ENT inspection, TMs normal, pharynx normal, moist mucous membranes Neck Exam: normal inspection, non-tender, supple, full range of motion Respiratory Exam: normal breath sounds, lungs clear, No respiratory distress Cardiovascular Exam: regular rate/rhythm, normal heart sounds, normal peripheral pulses, tachycardia Gastrointestinal/Abdomen Exam: soft, normal bowel sounds, tenderness (ANTERIOR TO LEFT CVA AREA) Back Exam: CVA tenderness (MARKED LEFT CVA TENDERNESS) Extremity Exam: normal inspection Neurologic Exam: alert, 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, lead oxide mill tender II-XII nml as tested, nml cerebellar function SpO2 Interpretation: normal SpO2: 98 Oxygen Delivery: Room Air - CT Exams Abdomen/Pelvis CT Interpretation: Tele-radiologist Report (THERE IS PROMINENCE OF THE LEFT COLLECTING SYSTEM WITH MILD SURROUNDING FATTY INDURATION. THE LEFT URETER WAS DIFFICULT TO FOLLOW. NO DEFINITE EVIDENCE OF OBSTRUCTIVE UROPATHY IS SEEN.) Ordered Tests: Active Orders 24 hr Category Date Time Status Clean Catch Urine Specimen STAT Care 01/27/17 16:13 Active IV Insertion STAT Care 01/27/17 16:13 Active ABDOMEN AND PELVIS W/0 CONTRAS [CT] Stat Exams 01/27/17 16:14 Taken BLOOD CULTURE Stat Lab 01/27/17 16:20 Received BMP Stat Lab 01/27/17 16:20 Completed CBC W DIFF Stat Lab 01/27/17 16:20 Completed CULTURE,URINE Stat Lab 01/27/17 16:27 Received UA W/ MICROSCOPIC Stat Lab 01/27/17 16:27 Completed Medication Summary Generic Name Dose Route Start Last Admin Trade Name Freq PRN Reason Stop Dose Admin Sodium Chloride 1,000 mls @ 999 mls/hr 01/27/17 17:59 01/27/17 18:02 Sodium Chloride 0.9% 1000 Ml IV 01/27/17 18:59 999 mls/hr .Q1H1M STA Administration Discontinued Medications Generic Name Dose Route Start Last Admin Trade Name Freq PRN Reason Stop Dose Admin Hydrocodone Bitart/Acetaminophen 2 tab 01/27/17 18:26 [place] 10/325 Mg Tablet PO 01/27/17 18:27 SENT HOME W/ PATIENT ONE Hydrocodone Bitart/Acetaminophen Confirm 01/27/17 18:35 [place] 10/325 Mg Tablet Administered 01/27/17 18:36 Dose 2 tab .ROUTE .STK-MED ONE Hydromorphone HCl 1 mg 01/27/17 16:29 01/27/17 16:43 Hydromorphone 1 Mg/Ml Ampule IV 01/27/17 16:30 1 mg STAT ONE Administration Hydromorphone HCl Confirm 01/27/17 16:35 Hydromorphone 1 Mg/Ml Ampule Administered 01/27/17 16:36 Dose 1 mg .ROUTE .STK-MED ONE Sodium Chloride 1,000 mls @ 999 mls/hr 01/27/17 16:13 01/27/17 16:24 Sodium Chloride 0.9% 1000 Ml IV 01/27/17 17:13 999 mls/hr .Q1H1M STA Administration Sodium Chloride Confirm 01/27/17 16:18 Sodium Chloride 0.9% 1000 Ml Administered 01/27/17 16:19 Dose 1,000 mls @ ud .ROUTE .STK-MED ONE Ceftriaxone Sodium/Dextrose 2 g in 50 mls @ 100 mls/hr 01/27/17 17:07 17:24 Rocephin 2 Gm-D5w 50ml Bag IV 01/27/17 17:36 100 mls/hr STAT STA Administration Ceftriaxone Sodium/Dextrose Confirm 01/27/17 17:20 Rocephin 2 Gm-D5w 50ml Bag Administered 01/27/17 17:21 Dose 2 g in 50 mls @ ud IV .STK-MED ONE Sodium Chloride Confirm 01/27/17 18:00 Sodium Chloride 0.9% 1000 Ml Administered 01/27/17 18:01 Dose 1,000 mls @ ud .ROUTE .STK-MED ONE Ketorolac Tromethamine 30 mg 01/27/17 17:59 01/27/17 18:02 Toradol 30 Mg Injection IV 01/27/17 18:00 30 mg STAT ONE Administration Ketorolac Tromethamine Confirm 01/27/17 18:00 Toradol 30 Mg Injection Administered 01/27/17 18:01 Dose 30 mg .ROUTE .STK-MED ONE Ondansetron HCl 4 mg 01/27/17 16:13 01/27/17 16:24 Zofran 4 Mg/2 Ml Vial IV 01/27/17 16:14 4 mg STAT ONE Administration Ondansetron HCl Confirm 01/27/17 16:18 Zofran 4 Mg/2 Ml Vial Administered 01/27/17 16:19 Dose 4 mg .ROUTE .STK-MED ONE Lab/Rad Data: Laboratory Result Diagrams 01/27/17 16:20 01/27/17 16:20 Laboratory Results 01/27/17 01/27/17 01/27/17 Range/Units 16:27 16:20 16:20 WBC 8.5 (4.0-10.5) K/mm3 RBC 4.19 (4.1-5.4) M/mm3 Hgb 13.2 (12.0-16.0) gm/dl Hct 38.0 (35-47) % MCV 90.7 (78-100) fl MCH 31.5 (26-32) pg MCHC 34.7 (32-36) g/dl RDW 12.1 (11.5-14.0) % Plt Count 180 (150-450) K/mm3 MPV 9.4 (6-9.5) fl Gran % 71.9 H (36.0-66.0) % Lymphocytes % 19.9 L (24.0-44.0) % Monocytes % 6.1 (0.0-12.0) % Eosinophils % 1.9 (0.00-5.0) % Basophils % 0.2 (0.0-0.4) % Basophils # 0.02 (0-0.4) Sodium 140 (136-145) mEq/L Potassium 3.9 (3.5-5.1) mEq/L Chloride 105 (98-107) mEq/L Carbon Dioxide 26.1 (21-32) mEq/L Anion Gap 12.7 (5-15) MEQ/L BUN 10 (9-20) mg/dL Creatinine 0.65 (0.55-1.30) mg/dl Estimated GFR > 60 ML/MIN Glucose 88 (70-110) MG/DL Calcium 8.4 L (8.5-10.1) mg/dL Ur Collection Type CLEAN CATCH Urine Color YELLOW (YELLOW) Urine Appearance CLOUDY (CLEAR) Urine pH 7.0 (5-6) Ur Specific [place] 1.010 (1.005-1.025) Urine Protein TRACE (Negative) Urine Ketones NEGATIVE (NEGATIVE) Urine Blood 50 (0-5) [place]/ul Urine Nitrite POSITIVE (NEGATIVE) Urine Bilirubin NEGATIVE (NEGATIVE) Urine Urobilinogen NORMAL (0-1) mg/dL Ur Leukocyte Esterase 1+ (NEGATIVE) Urine Microscopic RBC 0-2 (0-2) /HPF Urine Microscopic WBC 15-25 (0-5) /HPF Ur Epithelial Cells FEW (FEW) /HPF Urine Bacteria MANY (NEGATIVE) /HPF Urine Glucose NEGATIVE (NEGATIVE) mg/dL Specimen Received 01/27/17:1620 - Progress Progress: improved Progress Note: 01/27/17 17:08 PATIENT ADMINISTERED IV NORMAL SALINE 1 LITER BOLUS, ZOFRAN 4MG, DILAUDID 1MG, AND AFTER 2 SETS OF BLOOD CULTURES, ROCEPHIN 2GM IVPB Blood Culture(s) Obtained: Yes Antibiotics given: Yes (ROCEPHIN 2GM IVPB) Counseled pt/family regarding: lab results, diagnosis, need for follow-up, rad results - Departure Time of Disposition: 18:55 Departure Disposition: Home Clinical Impression: ACUTE RENAL COLIC, URINARY TRACT INFECTION Condition: Stable Critical Care Time: No Referrals: MARCELINA LIRIANO [Primary Care Provider] - Additional Instructions: DRINK PLENTY OF FLUIDS. ANTIBIOTIC CIPRO 500MG TWICE DAILY FOR 10 DAYS. [place] 10/325 EVERY 4 HOURS FOR PAIN. FOLLOWUP WITH YOUR FAMILY PHYSICIAN THIS WEEK AND UROLOGIST DR JAVIER . CALL OFFICE TO SCHEDULE APPOINTMENT. USE A STRAINER WHILE VOIDING FOR 1 WEEK. TYLENOL OR MOTRIN NEEDED FOR FEVER. Prescriptions: Hydrocodone/APAP 10/325 mg [[place] 10/325 MG Tablet] 1 tab PO Q4H PRN PRN # 15 tablet PRN Reason: Pain Ciprofloxacin [Cipro 500 MG] 500 mg PO BID #20 tablet
[2017-01-27] MEDS ORDERED: Hydromorphone 1 mg/ml Ampule IV ONE (16:29)
[2017-01-27 16:30] LABS: BASOPHIL % 0.2 % (0.0-0.4); Eosinophil % 1.9 % (0.00-5.0); Granulocytes % 71.9 % (36.0-66.0); Lymphocytes % 19.9 % (24.0-44.0); Mean Cell Volume 90.7 fl (78-100); Mean Corpuscular Hemoglobin 31.5 pg (26-32); Mean Platelet Volume 9.4 fl (6-9.5); Monocytes % 6.1 % (0.0-12.0); Platelet Count 180 K/mm3 (150-450); Red Blood Count 4.19 M/mm3 (4.1-5.4); Red Cell Distribution Width 12.1 % (11.5-14.0); White Blood Count 8.5 K/mm3 (4.0-10.5)
[2017-01-27] MEDS ORDERED: Hydromorphone 1 mg/ml Ampule ONE (16:35)
[2017-01-27 16:47] LABS: ANION GAP 12.7 MEQ/L (5-15); BLOOD UREA NITROGEN 10 mg/dL (9-20); CHLORIDE 105 mEq/L (98-107); Carbon Dioxide 26.1 mEq/L (21-32); Glucose 88 MG/DL (70-110); Potassium 3.9 mEq/L (3.5-5.1); SODIUM 140 mEq/L (136-145)
[2017-01-27 16:47] LABS: ADD URINE CULTURE? YES (NO); Bilirubin NEGATIVE (NEGATIVE); Blood 50 Ery/ul (0-5); COMPLETE URINE MICROSCOPIC? YES; Collection Type CLEAN CATCH; Glucose NEGATIVE (NEGATIVE); Leukocyte Esterase 1+ (NEGATIVE)
[2017-01-27 16:48] LABS: Bacteria MANY /HPF (NEGATIVE); Epithelial Cells FEW /HPF (FEW); WBC 15-25 /HPF (0-5)
[2017-01-27] MEDS ORDERED: ROCEPHIN 2 Gm-D5w 50ML BAG** 2 G/50 ML IVPB IV STA (17:07)
[2017-01-27] MEDS ORDERED: ROCEPHIN 2 Gm-D5w 50ML BAG** 2 G/50 ML IVPB IV ONE (17:20)
[2017-01-27] MEDS ORDERED: TORAdol 30 mg Injection IV ONE (17:59)
[2017-01-27 18:00] VITALS: O2SAT 98
[2017-01-27] MEDS ORDERED: TORAdol 30 mg Injection ONE (18:00)
[2017-01-27] MEDS ORDERED: Norco 10/325 MG Tablet PO ONE (18:26)
[2017-01-27] MEDS ORDERED: Norco 10/325 MG Tablet ONE (18:35)
[2017-01-27 18:55] VITALS: BP 98/53
[2017-01-27 19:01] VITALS: PULSE 68
--- NOTE | 2017-01-27 19:19 | XRAY ---
Indication: Severe left flank pain. History of UTI. Multiple contiguous axial images obtained through the abdomen and pelvis without contrast as ordered. Comparison: August 24, 2015. Lung bases remain clear. Heart is not enlarged. Again no renal calculus. Left kidney now demonstrates mild pelvic prominence without hydronephrosis or hydroureter. Urinary bladder now demonstrates tiny intraluminal air bubble either iatrogenic from recent catheterization versus air forming bacterial infection. There remains splenomegaly today measuring 12.6 cm in greatest axial dimension. Stable 1 cm left lobe hepatic cyst. Interval cholecystectomy. Stable hysterectomy. There is again tiny nonspecific right pelvic fluid collection unchanged. No free air. Noncontrasted stomach and bowel loops appear nonobstructed. There is again mild scattered colonic fecal debris. Remaining liver, pancreas, spleen, adrenal glands, kidneys, ureters, bladder, and aorta appear unremarkable for noncontrast exam. Osseous structures intact. Impression: 1. New left renal pelvic prominence without distal calculus. Findings can be seen with recent passage of calculus. 2. New urinary bladder air bubble either iatrogenic versus air forming bacterial infection. 3. Again incidental splenomegaly, hepatic cyst, and small nonspecific pelvic fluid. Comment: Preliminary interpretation was made by [facility]. Urinary bladder air bubble not reported. CTDI 9.45
== END 2017-01-27 19:15 | disposition home or self-care (01) ==
LOC: ED 15:47
DX: N23 Unspecified renal colic (principal); N39.0 Urinary tract infection, site not specified
CPT/HCPCS: 36000; 36415; 74176; 80048; 81000; 85025; 87040; 87077; 87086; 87186; 96360; 96361; 96365; 96374; 96375; 99284; J0696; J1170; J1885; J2405; A9270-GY

== ENCOUNTER 2018-01-20 05:53 | Day surgery (SDC) | payer OTHER ==
[2018-01-20] MEDS ORDERED: DIPRIVAN 200 MG/20 ML IV ONE (05:54)
[2018-01-20] MEDS ORDERED: Lactated Ringers 1,000 ML IV SCH (06:30)
[2018-01-20 08:39] VITALS: O2SAT 100
[2018-01-20 09:00] VITALS: BP 109/68; PULSE 52
--- NOTE | 2018-01-20 10:34 | OP ---
SURGERY DATE/TIME: 01/20/2018 0745 PREOPERATIVE DIAGNOSIS: History of colon polyp. POSTOPERATIVE DIAGNOSIS: Normal colon. PROCEDURE: Colonoscopy. SURGEON: Dr. Herr. ANESTHESIA: MAC. Medications given by anesthesia department. HISTORY: The patient is a 37 year-old white female who reports that five years ago she had colonoscopy performed where polyps were found and removed. The patient was reappraised of the risks of the procedure including the risk of perforation, phlebitis, untoward reaction to medication, bleeding and missed lesions. The patient verbalized her understanding and desired to have the procedure performed. DESCRIPTION OF PROCEDURE: The patient was given the medications by the anesthesia department. She had continuous pulse oximetry, ECG monitoring, intermittent blood pressure monitoring and tidal CO2 monitoring during the examination. She was placed in the left lateral decubitus position. A digital rectal examination was performed and revealed normal anal sphincter tone and no masses. The flexible Olympus pediatric colonoscope was used to intubate the rectum. A view of the colon was developed sequentially to the cecum. Upon insertion and withdrawal, including a retroflex view in the rectum, no mucosal lesions were encountered. The scope was removed from the patient who tolerated the procedure well and was sent back to OP recovery in good condition. The prep was noted to be fair to good.
== END 2018-01-20 09:00 | disposition home or self-care (01) ==
LOC: SDC 05:53
PROVIDERS: ATTEND Family Medicine
DX: Z86.010 Personal history of colon polyps (principal)
CPT/HCPCS: 94250; 96372; J1200; J2704; J2930; A9270-GY

== ENCOUNTER 2018-01-20 19:46 | Emergency (ER) | payer OTHER ==
[2018-01-20] MEDS ORDERED: solu-MEDROL 125 MG ONE (19:55)
[2018-01-20] MEDS ORDERED: BENADRYL 50 MG/ML ONE (19:55)
[2018-01-20] MEDS: BENADRYL 50 MG/ML IM ONE (20:00)
[2018-01-20] MEDS: solu-MEDROL 125 MG IM ONE (20:00)
--- NOTE | 2018-01-20 20:04 | ERPHSYRPT ---
- History of Present Illness Time Seen by Provider: 01/20/18 19:59 Source: patient Exam Limitations: no limitations Patient Subjective Stated Complaint: Pt arrives to ER with c/o swelling in throat began around 1800. Ate Marshmallow at 1730 and believes may have been the cause. States also had colonoscopy this morning without difficulty. Triage Nursing Assessment: Swelling to throat bilateral with painful and difficult swallowing. pt currently does not have any difficulty breathing at this time. Denies rash or any other sx. Physician History: 37 y/o white female presents with sudden onset of throat swelling after consuming rice krispy treat franciscos. pt has nkda and no allergies in general. pt underwent an uneventful colonoscopy this am. 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 ) Associated Symptoms: difficulty swallowing (mild), No ear pain (R), No ear pain (L), No cough, No drooling, No sore throat Allergies/Adverse Reactions: No Known Drug Allergies Allergy (Verified 01/14/18 08:54) Home Medications: Alprazolam 1 mg [Xanax 1 mg] 1 mg PO BID 01/27/17 [History] Estradiol 1 mg [Estrace 1 mg] 4 mg PO DAILY 01/27/17 [History] Omeprazole 20 MG [Prilosec 20 mg] 20 mg PO DAILY 01/14/18 [History] cloNIDine HCl [Clonidine HCl] 0.1 mg PO BID 01/14/18 [History] Hx Tetanus, Diphtheria Vaccination/Date Given: No Hx Influenza Vaccination/Date Given: No Hx Pneumococcal Vaccination/Date Given: No - Review of Systems Constitutional: No Symptoms, No Fever Eyes: No Symptoms, No Discharge Ears, Nose, & Throat: Throat Swelling, No Nose Congestion Respiratory: No Symptoms, No Cough, No Dyspnea, No Dyspnea on Exertion ([place]), No Stridor, No Wheezing Cardiac: No Symptoms, No Chest Pain, No Palpitations, No Syncope Abdominal/Gastrointestinal: No Symptoms, No Abdominal Pain, No Nausea, No Vomiting, No Diarrhea Genitourinary Symptoms: No Symptoms, No Dysuria, No Frequency, No Hematuria Musculoskeletal: No Symptoms Skin: No Symptoms, No Cellulitis, No Pruritis, No Rash Neurological: No Symptoms, No Dizziness, No Gait Changes, No Headache Psychological: No Symptoms Endocrine: No Symptoms Hematologic/Lymphatic: No Symptoms Immunological/Allergic: No Symptoms All Other Systems: Reviewed and Negative - Past Medical History Pertinent Past Medical History: Yes Neurological History: No Pertinent History ENT History: No Pertinent History Cardiac History: Other Respiratory History: No Pertinent History Endocrine Medical History: No Pertinent History Musculoskeletal History: Other GI Medical History: Gallbladder Disease History: No Pertinent History Psycho-Social History: No Pertinent History Female Reproductive Disorders: Other Other Medical History: tubal times 2. hysterectomy 2009. mitral valve prolapse - Past Surgical History Past Surgical History: Yes Neuro Surgical History: No Pertinent History Cardiac: No Pertinent History Respiratory: No Pertinent History Gastrointestinal: Cholecystectomy Genitourinary: No Pertinent History Musculoskeletal: Orthopedic Surgery Female Surgical History: Hysterectomy, Tubal Ligation, Other Other Surgical History: right hip labram repair 2016 milk duct removed from right breast noncancerouls - Social History Smoking Status: Current every day smoker How long have you smoked: 0.5 Exposure to second hand smoke: No Drug Use: none Patient Lives Alone: No - Female History Hx Last Menstrual Period: 2006 Hx Now: No - Nursing Vital Signs Nursing Vital Signs: Initial Vital Signs Temperature 97.4 F 01/20/18 19:50 Pulse Rate 77 01/20/18 19:50 Respiratory Rate 18 01/20/18 19:50 Blood Pressure 150/86 01/20/18 19:50 O2 Sat by Pulse Oximetry 99 01/20/18 19:50 Pain Scale Pain Intensity 4 - Physical Exam General Appearance: mild distress, alert, anxiety Eye Exam: bilateral eye: normal inspection, PERRL, EOMI Ear Exam: bilateral ear: auricle normal Nasal Exam: normal inspection Throat Exam: normal, pharynx normal, moist mucus membranes, No dental tenderness , No excessive drooling, No mandibular swelling, No maxillary swelling, No pharynx swelling, No uvula swelling, No voice changes Neck Exam: non-tender, supple, full range of motion, No lymphadenopathy (L), No stiff neck Cardiovascular/Respiratory Exam: chest non-tender, normal breath sounds, regular rate/rhythm, heart sounds normal Abdominal Exam: non-tender, soft, no organomegaly, no hernia, No guarding, No tenderness Neurologic 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: 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, 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, 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, 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, normal mood/affect Skin Exam: normal color, warm, dry, No rash SpO2 Interpretation: normal SpO2: 99 Oxygen Delivery: Room Air - Course Nursing assessment & vital signs reviewed: Yes Ordered Tests: Medication Summary Discontinued Medications Generic Name Dose Route Start Last Admin Trade Name Kelly PRN Reason Stop Dose Admin Diphenhydramine HCl Confirm 01/20/18 19:55 Benadryl 50 Mg/Ml Administered 01/20/18 19:56 Dose 50 mg .ROUTE .STK-MED ONE Diphenhydramine HCl 50 mg 01/20/18 20:05 01/20/18 20:00 Benadryl 50 Mg/Ml IM 01/20/18 20:06 50 mg STAT ONE Administration Famotidine 40 mg 01/20/18 20:28 01/20/18 20:32 Pepcid 20 Mg PO 01/20/18 20:29 40 mg STAT ONE Administration Famotidine Confirm 01/20/18 20:32 Pepcid 20 Mg Administered 01/20/18 20:33 Dose 40 mg .ROUTE .STK-MED ONE Methylprednisolone Sodium Succinate Confirm 01/20/18 19:55 Solu-Medrol 125 Mg Administered 01/20/18 19:56 Dose 125 mg .ROUTE .STK-MED ONE Methylprednisolone Sodium Succinate 125 mg 01/20/18 20:06 01/20/18 20:00 Solu-Medrol 125 Mg IM 01/20/18 20:07 125 mg STAT ONE Administration - Progress Progress: improved Progress Note: 01/20/18 21:05 pt states after meds her swallowing is better. pt and her mother notice improvement in her facial swelling. pt states she is much better and wants to go home. there is no wheezing or stridor Counseled pt/family regarding: diagnosis, need for follow-up - Departure Time of Disposition: 21:07 Departure Disposition: Home Clinical Impression: Allergic reaction Condition: Stable Critical Care Time: No Referrals: MARCELINA LIRIANO [Primary Care Provider] - Additional Instructions: continue benadryl 25mg orally 3 times daily for 4 days. return to ER if symptoms worsen. avoid causative agent. Prescriptions: Prednisone 10 mg [Deltasone 10 mg] 10 mg PO TID #12 tablet Ranitidine HCl [Zantac] 150 mg PO BID #10 tablet
[2018-01-20] MEDS ORDERED: Pepcid 20 MG ONE (20:32)
[2018-01-20] MEDS: Pepcid 20 MG PO ONE (20:32)
[2018-01-20 20:43] VITALS: BP 126/64; PULSE 71
[2018-01-20 21:08] VITALS: O2SAT 99
== END 2018-01-20 21:23 | disposition home or self-care (01) ==
LOC: ED 19:46
DX: T78.40XA Allergy, unspecified, initial encounter (principal)
CPT/HCPCS: 96372; 99284; J1200; J2930; A9270-GY

== ENCOUNTER 2018-04-27 18:37 | Observation (INO) | payer OTHER ==
[2018-04-27] MEDS ORDERED: Hydromorphone 1 mg/ml Ampule (19:23)
[2018-04-27] MEDS ORDERED: Sodium Chloride 0.9% 1000 ML 1,000 ML ×2 (19:23→20:51)
[2018-04-27] MEDS ORDERED: Zosyn 3.375GM/100 Ml D5W 3.375 GM/100 ML IVPB IV (19:23)
[2018-04-27] MEDS ORDERED: Zofran 4 MG/2 ML VIAL (19:23)
[2018-04-27 19:26] LABS: HCG,QUALITATIVE URINE NEGATIVE (Negative)
[2018-04-27] MEDS: Sodium Chloride 0.9% 1000 ML 1,000 ML IV ×3 (19:29→23:18)
[2018-04-27] MEDS: Zofran 4 MG/2 ML VIAL IV (19:29)
[2018-04-27] MEDS: Hydromorphone 1 mg/ml Ampule IV (19:30)
[2018-04-27 19:34] LABS: Appearance CLOUDY (CLEAR); Bacteria FEW /HPF (NEGATIVE); Bilirubin NEGATIVE (NEGATIVE); Blood LARGE Ery/ul (0-5); Glucose NEGATIVE (NEGATIVE); Ketones NEGATIVE (NEGATIVE); Leukocyte Esterase MODERATE (NEGATIVE); Nitrite NEGATIVE (NEGATIVE); Protein,Urine Dip >=500 (Negative); Specific Gravity 1.019 (1.005-1.025); Urobilinogen NEGATIVE mg/dL (0-1); WBC >100 /HPF (0-5)
[2018-04-27 19:36] LABS: ADD URINE CULTURE? YES (NO); RBC >101 /HPF (0-2)
[2018-04-27 19:42] LABS: BASOPHIL % 0.4 % (0.0-0.4); Basophil (Absolute #) 0.03 (0-0.4); Eosinophil % 3.1 % (0.00-5.0); Eosinophil (Absolute #) 0.26 (0-0.5); Hematocrit 43.1 % (35-47); Lymphocyte (Absolute #) 2.71 (1.0-4.6); Lymphocytes % 32.7 % (24.0-44.0); Mean Cell Volume 90.5 fl (78-100); Mean Corpuscular Hemoglobin 31.5 pg (26-32); Mean Corpuscular Hgb Concent. 34.8 g/dl (32-36); Mean Platelet Volume 9.7 fl (6-9.5); Monocyte (Absolute #) 0.48 (0.0-1.3); Monocytes % 5.8 % (0.0-12.0); Platelet Count 214 K/mm3 (150-450); Red Blood Count 4.76 M/mm3 (4.1-5.4); White Blood Count 8.3 K/mm3 (4.0-10.5)
[2018-04-27 19:43] LABS: ADD MANUAL DIFF? NO (NO)
[2018-04-27 19:52] LABS: ANION GAP 14.5 MEQ/L (5-15); BLOOD UREA NITROGEN 16 mg/dL (7-17); CHLORIDE 103 mmol/L (98-107); Calcium 9.9 mg/dL (8.4-10.2); Carbon Dioxide 28 mmol/L (22-30); Creatinine 1 0.74 mg/dL (0.52-1.04); EST GLOMERULAR FILTRATION RATE > 60.0 ML/MIN; Glucose 85 mg/dL (74-106); Potassium 3.8 mmol/L (3.5-5.1); SODIUM 142 mmol/L (137-145)
[2018-04-27] MEDS: Zosyn 3.375GM/100 Ml D5W 3.375 GM/100 ML IVPB IV (19:58)
[2018-04-27] MEDS ORDERED: TORAdol 30 mg Injection (20:50)
[2018-04-27] MEDS: TORAdol 30 mg Injection IV (20:54)
[2018-04-27] MEDS ORDERED: TYLENOL 325 MG PO (22:11)
[2018-04-27] MEDS: MORPHINE SULFATE 4 MG INJ IV (23:23)
[2018-04-28] MEDS: Zosyn 3.375GM/100 Ml D5W 3.375 GM/100 ML IVPB IV ×3 (01:51→11:38)
[2018-04-28] MEDS: MORPHINE SULFATE 4 MG INJ IV ×2 (03:41→08:24)
[2018-04-28 05:38] LABS: BASOPHIL % 0.4 % (0.0-0.4); Basophil (Absolute #) 0.03 (0-0.4); Eosinophil % 3.7 % (0.00-5.0); Eosinophil (Absolute #) 0.28 (0-0.5); Granulocyte Absolute (ANC) 4.16 (1.4-6.9); Granulocytes % 55.6 % (36.0-66.0); Hematocrit 37.7 % (35-47); Lymphocyte (Absolute #) 2.57 (1.0-4.6); Lymphocytes % 34.4 % (24.0-44.0); Mean Cell Volume 91.3 fl (78-100); Mean Corpuscular Hemoglobin 31.5 pg (26-32); Mean Corpuscular Hgb Concent. 34.5 g/dl (32-36); Mean Platelet Volume 9.5 fl (6-9.5); Monocyte (Absolute #) 0.44 (0.0-1.3); Monocytes % 5.9 % (0.0-12.0); Platelet Count 166 K/mm3 (150-450); Red Blood Count 4.13 M/mm3 (4.1-5.4); Red Cell Distribution Width 11.9 % (11.5-14.0); White Blood Count 7.5 K/mm3 (4.0-10.5)
[2018-04-28 05:43] LABS: ADD MANUAL DIFF? NO (NO)
[2018-04-28] MEDS: Catapres 0.1 MG PO (10:10)
[2018-04-28] MEDS: ESTRACE 1 MG PO (10:10)
[2018-04-28] MEDS: NORCO 5/325 MG PO (12:16)
[2018-04-28] MEDS: Zofran 4 MG/2 ML VIAL IV (12:16)
[2018-04-28] MEDS: Sodium Chloride 0.9% 1000 ML 1,000 ML IV (12:54)
[2018-04-28 15:42] LABS: Appearance CLEAR (CLEAR); Leukocyte Esterase NEGATIVE (NEGATIVE); Specific Gravity 1.017 (1.005-1.025)
[2018-04-28 15:43] LABS: Bacteria RARE /HPF (NEGATIVE); Bilirubin NEGATIVE (NEGATIVE); Blood SMALL Ery/ul (0-5); Epithelial Cells RARE /HPF (FEW); Glucose NEGATIVE (NEGATIVE); Ketones NEGATIVE (NEGATIVE); Mucus SLIGHT /HPF (NEGATIVE); Nitrite NEGATIVE (NEGATIVE); Protein,Urine Dip NEGATIVE (Negative); RBC 0-2 /HPF (0-2); Urobilinogen NEGATIVE mg/dL (0-1)
[2018-04-29] MEDS ORDERED: FLUZONE QUAD (36mo-64yo) 2018-2019 SYRINGE IM (10:00)
== END 2018-04-28 17:30 | disposition home or self-care (01) ==
LOC: ED 18:37 → MED SURG 22:46
CPT/HCPCS: 36000; 36415; 74176; 76770; 80048; 81001; 84703; 85025; 87040; 87086; 96374; 96375; 99285; J1170; J1885; J2270; J2405; J2543

== ENCOUNTER 2019-04-06 09:52 | Day surgery (SDC) | payer OTHER ==
--- NOTE | 2019-04-06 08:43 | HP ---
DATE OF SURGERY: 04/06/2019 HISTORY OF PRESENT ILLNESS: The patient is a 38 year-old with persistent drainage/discharge from her left breast that has failed to resolve that is affecting her life. She is need of major duct excision. She is done having children. She had hysterectomy in the past. She had some intermittent bloody discharge. Mammogram and ultrasound did not show any obvious suspicious density. PAST SURGICAL HISTORY: She had major duct excision on the right in the past. She had cholecystectomy in the past. Hysterectomy in the past. She had some cysts removed her ovaries prior to hysterectomy. She had left knee meniscus repaired in the past. Colonoscopy in the past. She had lipoma removed in the past. MEDICATIONS: Clonidine, Estradiol. ALLERGIES: NKDA. FAMILY HISTORY: Heart disease, hypertension. SOCIAL HISTORY: Half pack per day smoker, denies alcohol abuse. REVIEW OF SYSTEMS: Fourteen systems reviewed. No chest pain or palpitations. Other systems negative or noncontributory as above and per preadmission questionnaire. PHYSICAL EXAMINATION: GENERAL: No acute distress. HEENT: Sclerae nonicteric. NECK: No JVD. CHEST: Equal excursion, nonlabored breathing. CVS: Regular rate and rhythm. ABDOMEN: Soft. EXTREMITIES: No significant edema. NEURO: Alert, oriented, moving extremities symmetrically. No gross motor deficits noted. BREASTS: No drainage from her right breast. Left breast she has had intermittent drainage, some blood at times, clear a good portion of the time. None on the office visit. IMPRESSION: Persistent nipple drainage of left breast. Radiologist suggested consideration of ductogram. As that is not easily available and this patient with recurrent drainage affecting her lifestyle and life, she is not agreeable to consenting for ductogram. She prefers to go ahead and proceed with major duct excision on the left as she did quite well with similar procedure on the opposite side in the past. Will proceed with major duct excision on the left breast. General risk of bleeding or infection, risk of aches, pains, burning or numbness possibly custodial or chronic in nature, possible contour changes of the breast on this side, general risk of anesthesia, deep venous thrombosis, pulmonary embolism, pneumonia, risk of infection possibly requiring packing, general risk of aches and pains possibly chronic in nature. She understands all of the above but not limited to, will proceed with major duct excision left breast as an outpatient.
[~2019-04-06 09:52] MED LIST changes: -DIPRIVAN 200 MG/20 ML IV ONE; -Lactated Ringers 1,000 ML IV SCH; -SUBLIMAZE 100 MCG/2 ML IV ONE; +Sensorcaine 0.25% 10 ML ONE; -TORAdol 30 mg Injection IV ONE; -Versed 2 MG/2 ML Injection IV ONE; -XYLOCAINE 1% HCL 20 ML MDV ONE; -Zofran 4 MG/2 ML VIAL IV ONE
[2019-04-06] MEDS ORDERED: Lactated Ringers 1,000 ML IV SCH (10:30)
[2019-04-06] MEDS ORDERED: Lactated Ringers 1,000 ML IV ONE ×2 (10:32→14:01)
[2019-04-06] MEDS ORDERED: CEFAZOLIN 2 GM-D5W BAG** 2 GM/50 ML ML IV ONE (11:13)
[2019-04-06] MEDS ORDERED: CEFAZOLIN 2 GM-D5W BAG** 2 GM/50 ML ML IV SCH (11:30)
[2019-04-06] MEDS ORDERED: DIPRIVAN 200 MG/20 ML IV ONE (11:42)
[2019-04-06] MEDS ORDERED: SUBLIMAZE 100 MCG/2 ML ONE ×2 (11:42→13:27)
[2019-04-06] MEDS ORDERED: Zofran 4 MG/2 ML VIAL ONE (13:05)
[2019-04-06] MEDS ORDERED: ROBINUL ONE (13:05)
[2019-04-06] MEDS ORDERED: Decadron 4 MG INJ ONE (13:05)
[2019-04-06] MEDS ORDERED: DILAUDID 2 MG INJECTION ONE (14:04)
[2019-04-06] MEDS ORDERED: NORCO 5/325 MG PO PRN (15:18)
[2019-04-06 15:37] VITALS: O2SAT 96
[2019-04-06 15:48] VITALS: BP 145/87; PULSE 57
--- NOTE | 2019-04-07 08:52 | OP ---
SURGERY DATE/TIME: 04/06/2019 1240 PREOPERATIVE DIAGNOSIS: Persistent drainage, intermittent blood in nipple drainage left breast. POSTOPERATIVE DIAGNOSIS: Persistent drainage, intermittent blood in nipple drainage left breast, path pending. PROCEDURE: Left breast major duct excision. SURGEON: Dr. Lang Enriquez. ANESTHESIA: General. ESTIMATED BLOOD LOSS: Minimal. INDICATIONS: As noted above. Risks and benefits explained in detail and not limited to and consent obtained. She had prior similar problem on the right side. She had ectatic ducts and fibrocystic disease that failed to resolve. She has undergone right breast major duct excision in the past and had very good results. She has persistent, reoccurring nipple drainage affecting her life, intermittent clear and bloody. Ductogram had been suggested to the patient however she had such good results with the duct excision in the past on the opposite side she preferred to proceed with duct excision. I felt this was indicated and consent had been obtained. Risks and benefits explained in detail but not limited to and consent obtained. DESCRIPTION OF PROCEDURE AND FINDINGS: The patient is taken to the operating room. She had been preoperatively marked in the holding area. She is prepped and draped in usual sterile fashion. After official time out and no disagreement with planned procedure, curvilinear incision made in the areolar margin slowly about a quarter to less than one-third but closer to a quarter of the margin. Dissection carried down to subcutaneous tissue and underneath it to the retro-nipple area this is carefully disconnected from the ducts, had a little bit of drainage from these areas. Dissection carried circumferentially directly deep to this area removing the ductal system. It was passed off for pathology. Palpation did not reveal any other palpable masses. The nipple areolar area appeared to be viable at this point. Some pin point cautery had been used in the deeper breast parenchyma. Good hemostasis noted. The deeper breast tissue is brought back together with 3-0 Vicryl. Superficial subcu closed with 3-0 Vicryl. Skin closed with 4-0 Vicryl. Steri-Strips and sterile dressing applied. The patient tolerated the procedure well. There were no immediate complications. Findings discussed with the family out in the waiting area.
== END 2019-04-06 15:40 | disposition home or self-care (01) ==
LOC: SDC 09:52
PROVIDERS: ATTEND Surgery
DX: N64.52 Nipple discharge (principal); N64.59 Other signs and symptoms in breast
CPT/HCPCS: J0690; J1100; J1170; J2405; J2704; J3010; A9270-GY

== ENCOUNTER 2020-07-08 18:07 | Emergency (ER) | payer OTHER ==
[2020-07-08] MEDS ORDERED: Sodium Chloride 0.9% 1000 ML 1,000 ML IV STA (18:17)
[2020-07-08] MEDS ORDERED: Sodium Chloride 0.9% 1000 ML 1,000 ML ONE (18:49)
[2020-07-08 18:53] LABS: Absolute Neutrophil Ct (ANC) 3.77 (1.4-6.9); BASOPHIL % 0.5 % (0.0-0.4); Basophil (Absolute #) 0.03 (0-0.4); Eosinophil % 3.5 % (0.00-5.0); Eosinophil (Absolute #) 0.23 (0-0.5); Hematocrit 41.3 % (35-47); Hemoglobin 14.2 gm/dl (12.0-16.0); Lymphocyte (Absolute #) 2.15 (1.0-4.6); Lymphocytes % 32.9 % (24.0-44.0); Mean Cell Volume 89.4 fl (78-100); Mean Corpuscular Hemoglobin 30.7 pg (26-32); Mean Corpuscular Hgb Concent. 34.4 g/dl (32-36); Monocyte (Absolute #) 0.36 (0.0-1.3); Monocytes % 5.5 % (0.0-12.0); Neutrophil % 57.6 % (36.0-66.0); Platelet Count 222 K/mm3 (150-450); Red Blood Count 4.62 M/mm3 (4.1-5.4); Red Cell Distribution Width 11.6 % (11.5-14.0); White Blood Count 6.5 K/mm3 (4.0-10.5)
[2020-07-08 19:06] LABS: ACETAMINOPHEN < 10 ug/ml (10-30); ALBUMIN 4.4 g/dL (3.5-5.0); ALKALINE PHOSPHATASE 63 U/L (38-126); ANION GAP 10.7 MEQ/L (5-15); BLOOD UREA NITROGEN 13 mg/dL (7-17); CHLORIDE 102 mmol/L (98-107); Calcium 9.4 mg/dL (8.4-10.2); Carbon Dioxide 28 mmol/L (22-30); Creatinine 1 0.64 mg/dL (0.52-1.04); EST GLOMERULAR FILTRATION RATE > 60.0 ML/MIN; ETHYL ALCOHOL < 10 mg/dL (0-10); Glucose 93 mg/dL (74-106); Potassium 3.7 mmol/L (3.5-5.1); SALICYLATE < 1.0 mg/dL (2-20); SGOT/AST 23 U/L (14-36); SGPT/ALT 27 U/L (0-35); SODIUM 137 mmol/L (137-145); Total Protein 7.3 g/dL (6.3-8.2)
--- NOTE | 2020-07-08 19:25 | ERPHSYRPT ---
- History of Present Illness Time Seen by Provider: 07/08/20 18:20 Patient Subjective Stated Complaint: PT states "I am tired, my head hurts.". Medics states "Her kids came home and found her sleepy and not acting right. She passed out right before they called us. she has passed out twice. They stated she fell 6 days ago and hit her head on the concrete. All she said was she took her anxiety meds. " Triage Nursing Assessment: PT pressented alert and oriented X 2, skin pwd. Pt able to speak in clear full sentences pt. PT sleepy, lethargic, moving all extremeites. Pt shaking, when eyes open, she is anxious. Physician History: Patient is a 39-year-old white female who presents by ambulance after her children noted she was hard to awaken she is was passing out and slow to answer. They were concerned about her decrease in her level of consciousness. 6 days ago she fell in the garage and hit her head on concrete it is unknown whether there was a loss of consciousness. All the patient will see a night is that she took her anxiety medicines as prescribed. Allergies/Adverse Reactions: ketorolac [From Toradol] Allergy (Intermediate, Verified 04/06/19 10:22) Rash Home Medications: ALPRAZolam [Alprazolam] 0.5 mg PO BID 07/08/20 [History] Buspirone HCl 5 mg [Buspar 5 mg] 5 mg PO BID 07/08/20 [History] Clonidine HCl 0.1 mg [Catapres 0.1 MG] 0.2 mg PO DAILY 07/08/20 [History] Fluoxetine HCl 20 mg [Prozac 20 MG] 20 mg PO DAILY 07/08/20 [History] Hydroxyzine HCl 25 mg PO HS 07/08/20 [History] Hx Tetanus, Diphtheria Vaccination/Date Given: No Hx Influenza Vaccination/Date Given: No Hx Pneumococcal Vaccination/Date Given: No Immunizations Up to Date: Yes Travel Risk - International Travel Have you traveled outside of the country in past 3 weeks: No - Coronavirus Screening Are you exhibiting any of the following symptoms?: No Close contact with a COVID-19 positive Pt in past 14-21 Days: No - Past Medical History Pertinent Past Medical History: Yes Neurological History: No Pertinent History ENT History: No Pertinent History Cardiac History: No Pertinent History Respiratory History: Other Endocrine Medical History: No Pertinent History Musculoskeletal History: No Pertinent History GI Medical History: No Pertinent History History: No Pertinent History Psycho-Social History: No Pertinent History Female Reproductive Disorders: Other Other Medical History: Current everyday smoker. Takes hormone replacement therapy from menopause symptoms from hysterectomy. - Past Surgical History Past Surgical History: Yes Neuro Surgical History: No Pertinent History Cardiac: No Pertinent History Respiratory: No Pertinent History Gastrointestinal: Cholecystectomy Genitourinary: No Pertinent History Musculoskeletal: No Pertinent History Female Surgical History: Hysterectomy, Tubal Ligation Other Surgical History: right hip labram repair 2016 milk duct removed from right breast noncancerouls. fatty tumor removed from right side. - Social History Smoking Status: Unknown if ever smoked How long have you smoked: 14 years Exposure to second hand smoke: (unknown) Drug Use: none Patient Lives Alone: No - Female History Hx Last Menstrual Period: hysterctomy Hx Now: No - Review of Systems Constitutional: No Fever, No Chills Eyes: No Symptoms Ears, Nose, & Throat: No Symptoms Respiratory: No Cough, No Dyspnea Cardiac: No Chest Pain, No Edema, No Syncope Abdominal/Gastrointestinal: No Abdominal Pain, No Nausea, No Vomiting, No Diarrhea Genitourinary Symptoms: No Dysuria Musculoskeletal: No Back Pain, No Neck Pain Skin: No Rash Neurological: Headache, Lethargy, No Dizziness, No Focal Weakness, No Sensory Changes Psychological: No Symptoms Endocrine: No Symptoms All Other Systems: Reviewed and Negative Physical Exam - Nursing Vital Signs Nursing Vital Signs: Initial Vital Signs Temperature 98.1 F 07/08/20 18:08 Pulse Rate 76 07/08/20 18:08 Respiratory Rate 20 07/08/20 18:08 Blood Pressure 152/88 07/08/20 18:08 O2 Sat by Pulse Oximetry 100 07/08/20 18:08 Pain Scale Pain Intensity 8 - Yovana Coma Scale Best Eye Response (Yovana): (4) open spontaneously Best Verbal Response (Yovana): (5) oriented Best Motor Response ([place]): (6) obeys commands Yovana Total: 15 - Physical Exam General Appearance: mild distress, lethargy Eye Exam: bilateral eye: PERRL, EOMI Ears, Nose, Throat Exam: normal ENT inspection, pharynx normal, moist mucous membranes Neck Exam: normal inspection, non-tender, supple, full range of motion Respiratory: normal breath sounds, lungs clear, No chest tenderness, No respiratory distress Cardiovascular: regular rate/rhythm, capillary refill <2 sec, No murmur, No pulse deficit Gastrointestinal: soft, No tenderness, No distention, No mass Back Exam: normal inspection, normal range of motion, No CVA tenderness, No vertebral tenderness Extremity Exam: normal inspection, normal range of motion, pelvis stable, No tenderness 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, 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, 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: normal speech, PERRL, No facial droop Coordination/Gait: normal finger to nose Motor/Sensory: no motor deficit, no sensory deficit, no pronator drift Skin Exam: normal color SpO2 Interpretation: normal SpO2: 97 O2 Delivery: Room Air - Course Nursing assessment & vital signs reviewed: Yes EKG Interpreted by Me: RATE (69), Sinus Rhythm, NORMAL AXIS, NORMAL INTERVALS, NORMAL QRS, NORMAL ST-T - CT Exams Head CT Interpretation: Negative Ordered Tests: Active Orders 24 hr Category Date Time Status EKG-ER Only STAT Care 07/08/20 18:17 Active IV Insertion STAT Care 07/08/20 18:17 Active HEAD WITHOUT CONTRAST [CT] Stat Exams 07/08/20 18:17 Completed ACETAMINOPHEN Stat Lab 07/08/20 18:44 Completed CBC W DIFF Stat Lab 07/08/20 18:44 Completed CMP Stat Lab 07/08/20 18:44 Completed ETHYL ALCOHOL Stat Lab 07/08/20 18:44 Completed HCG QUALITATIVE,SERUM Stat Lab 07/08/20 18:44 Completed SALICYLATE Stat Lab 07/08/20 18:44 Completed UA W/RFX UR CULTURE Stat Lab 07/08/20 18:58 Completed Urine Triage Profile Stat Lab 07/08/20 18:58 Completed Medication Summary Discontinued Medications Generic Name Dose Route Start Last Admin Trade Name Freq PRN Reason Stop Dose Admin Sodium Chloride 1,000 mls @ 999 mls/hr 07/08/20 18:17 07/08/20 18:49 Sodium Chloride 0.9% 1000 Ml IV 07/08/20 19:17 999 mls/hr .Q1H1M STA Administration Sodium Chloride Confirm 07/08/20 18:49 Sodium Chloride 0.9% 1000 Ml Administered 07/08/20 18:50 Dose 1,000 mls @ ud .ROUTE .STK-MED ONE Lab/Rad Data: Laboratory Result Diagrams 07/08/20 18:44 07/08/20 18:44 Laboratory Results 07/08/20 07/08/20 07/08/20 Range/Units 18:58 18:58 18:44 WBC (4.0-10.5) K/mm3 RBC (4.1-5.4) M/mm3 Hgb (12.0-16.0) gm/dl Hct (35-47) % MCV (78-100) fl MCH (26-32) pg MCHC (32-36) g/dl RDW (11.5-14.0) % Plt Count (150-450) K/mm3 MPV (7.5-11.0) fl Gran % (36.0-66.0) % Eos # (Auto) (0-0.5) Absolute Lymphs (auto) (1.0-4.6) Absolute Monos (auto) (0.0-1.3) Lymphocytes % (24.0-44.0) % Monocytes % (0.0-12.0) % Eosinophils % (0.00-5.0) % Basophils % (0.0-0.4) % Absolute Granulocytes (1.4-6.9) Basophils # (0-0.4) Sodium (137-145) mmol/L Potassium (3.5-5.1) mmol/L Chloride (98-107) mmol/L Carbon Dioxide (22-30) mmol/L Anion Gap (5-15) MEQ/L BUN (7-17) mg/dL Creatinine (0.52-1.04) mg/dL Estimated GFR ML/MIN Glucose (74-106) mg/dL Calcium (8.4-10.2) mg/dL Total Bilirubin (0.2-1.3) mg/dL AST (14-36) U/L ALT (0-35) U/L Alkaline Phosphatase (38-126) U/L Serum Total Protein (6.3-8.2) g/dL Albumin (3.5-5.0) g/dL Serum , Qual NEGATIVE (Negative) Urine Color STRAW (YELLOW) Urine Appearance CLEAR (CLEAR) Urine pH 7.0 (5-6) Ur Specific [place] 1.008 (1.005-1.025) Urine Protein NEGATIVE (Negative) Urine Ketones NEGATIVE (NEGATIVE) Urine Blood NEGATIVE (0-5) [place]/ul Urine Nitrite NEGATIVE (NEGATIVE) Urine Bilirubin NEGATIVE (NEGATIVE) Urine Urobilinogen NEGATIVE (0-1) mg/dL Ur Leukocyte Esterase NEGATIVE (NEGATIVE) Urine WBC (Auto) NONE (0-5) /HPF Urine RBC (Auto) NONE (0-2) /HPF U Epithel Cells (Auto) RARE (FEW) /HPF Urine Bacteria (Auto) NONE (NEGATIVE) /HPF Urine Culture Reflexed NO (NO) Urine Glucose NEGATIVE (NEGATIVE) mg/dL Salicylates (2-20) mg/dL Urine Opiates Level NEGATIVE (NEGATIVE) Ur Methadone NEGATIVE (NEGATIVE) Acetaminophen (10-30) ug/ml Urine Barbiturates NEGATIVE (NEGATIVE) Ur Phencyclidine (PCP) NEGATIVE (NEGATIVE) Urine Amphetamine NEGATIVE (NEGATIVE) U Benzodiazepine Level POSITIVE (NEGATIVE) Urine Cocaine NEGATIVE (NEGATIVE) Urine Marijuana (THC) NEGATIVE (NEGATIVE) Ethyl Alcohol (0-10) mg/dL 07/08/20 07/08/20 Range/Units 18:44 18:44 WBC 6.5 (4.0-10.5) K/mm3 RBC 4.62 (4.1-5.4) M/mm3 Hgb 14.2 (12.0-16.0) gm/dl Hct 41.3 (35-47) % MCV 89.4 (78-100) fl MCH 30.7 (26-32) pg MCHC 34.4 (32-36) g/dl RDW 11.6 (11.5-14.0) % Plt Count 222 (150-450) K/mm3 MPV 9.0 (7.5-11.0) fl Gran % 57.6 (36.0-66.0) % Eos # (Auto) 0.23 (0-0.5) Absolute Lymphs (auto) 2.15 (1.0-4.6) Absolute Monos (auto) 0.36 (0.0-1.3) Lymphocytes % 32.9 (24.0-44.0) % Monocytes % 5.5 (0.0-12.0) % Eosinophils % 3.5 (0.00-5.0) % Basophils % 0.5 (0.0-0.4) % Absolute Granulocytes 3.77 (1.4-6.9) Basophils # 0.03 (0-0.4) Sodium 137 (137-145) mmol/L Potassium 3.7 (3.5-5.1) mmol/L Chloride 102 (98-107) mmol/L Carbon Dioxide 28 (22-30) mmol/L Anion Gap 10.7 (5-15) MEQ/L BUN 13 (7-17) mg/dL Creatinine 0.64 (0.52-1.04) mg/dL Estimated GFR > 60.0 ML/MIN Glucose 93 (74-106) mg/dL Calcium 9.4 (8.4-10.2) mg/dL Total Bilirubin 0.30 (0.2-1.3) mg/dL AST 23 (14-36) U/L ALT 27 (0-35) U/L Alkaline Phosphatase 63 (38-126) U/L Serum Total Protein 7.3 (6.3-8.2) g/dL Albumin 4.4 (3.5-5.0) g/dL Serum , Qual (Negative) Urine Color (YELLOW) Urine Appearance (CLEAR) Urine pH (5-6) Ur Specific [place] (1.005-1.025) Urine Protein (Negative) Urine Ketones (NEGATIVE) Urine Blood (0-5) [place]/ul Urine Nitrite (NEGATIVE) Urine Bilirubin (NEGATIVE) Urine Urobilinogen (0-1) mg/dL Ur Leukocyte Esterase (NEGATIVE) Urine WBC (Auto) (0-5) /HPF Urine RBC (Auto) (0-2) /HPF U Epithel Cells (Auto) (FEW) /HPF Urine Bacteria (Auto) (NEGATIVE) /HPF Urine Culture Reflexed (NO) Urine Glucose (NEGATIVE) mg/dL Salicylates < 1.0 L (2-20) mg/dL Urine Opiates Level (NEGATIVE) Ur Methadone (NEGATIVE) Acetaminophen < 10 L (10-30) ug/ml Urine Barbiturates (NEGATIVE) Ur Phencyclidine (PCP) (NEGATIVE) Urine Amphetamine (NEGATIVE) U Benzodiazepine Level (NEGATIVE) Urine Cocaine (NEGATIVE) Urine Marijuana (THC) (NEGATIVE) Ethyl Alcohol < 10 (0-10) mg/dL - Progress Progress: improved - Departure Departure Disposition: Home Clinical Impression: Syncope Condition: Stable Critical Care Time: No Referrals: MARCELINA LIRIANO [Primary Care Provider] - Instructions: Syncope (Fainting) (DC) Forms: Work/School Release Form
--- NOTE | 2020-07-08 19:30 | XRAY ---
Indication: Posterior head injury 6 days ago. Stroke symptoms. Multiple contiguous axial images obtained through the head without contrast. Comparison: September 11, 2016 Normal appearing brain parenchyma, ventricles, and bony calvarium. Visualized paranasal sinuses and mastoid air cells are clear. Impression: Continued normal CT head without contrast exam.
[2020-07-08 19:35] LABS: Appearance CLEAR (CLEAR); Bilirubin NEGATIVE (NEGATIVE); Blood NEGATIVE Ery/ul (0-5); Epithelial Cells RARE /HPF (FEW); Glucose NEGATIVE (NEGATIVE); Ketones NEGATIVE (NEGATIVE); Leukocyte Esterase NEGATIVE (NEGATIVE); Nitrite NEGATIVE (NEGATIVE); Protein,Urine Dip NEGATIVE (Negative); Specific Gravity 1.008 (1.005-1.025); Urobilinogen NEGATIVE mg/dL (0-1)
[2020-07-08 19:49] LABS: Amphetamine,Urine NEGATIVE (NEGATIVE); Barbiturate,Urine NEGATIVE (NEGATIVE); Benzodiazepine,Urine POSITIVE (NEGATIVE); Cocaine,Urine NEGATIVE (NEGATIVE); Methadone,Urine NEGATIVE (NEGATIVE); Opiate,Urine NEGATIVE (NEGATIVE); PCP,Urine NEGATIVE (NEGATIVE); THC,Urine NEGATIVE (NEGATIVE)
[2020-07-08 20:09] VITALS: BP 124/81; PULSE 62; O2SAT 98
== END 2020-07-08 20:06 | disposition home or self-care (01) ==
LOC: ED 18:07
DX: R51.9 Headache, unspecified (principal); R55 Syncope and collapse; R53.83 Other fatigue; F41.1 Generalized anxiety disorder; W18.30XD Fall on same level, unspecified, subsequent encounter
CPT/HCPCS: 36000; 36415; 70450; 80053; 80307; 81001; 81025; 85025; 93005; 96360; 99284; G0480

== ENCOUNTER 2020-10-05 14:30 | Emergency (ER) | payer OTHER ==
[2020-10-05 14:45] VITALS: O2SAT 98
[2020-10-05] MEDS ORDERED: MORPHINE SULFATE 4 MG INJ IM ONE (14:54)
[2020-10-05] MEDS ORDERED: ZOFRAN ODT 4 MG PO ONE (14:55)
[2020-10-05] MEDS ORDERED: ZOFRAN ODT 4 MG ONE (14:58)
[2020-10-05] MEDS ORDERED: MORPHINE SULFATE 4 MG INJ ONE (14:58)
--- NOTE | 2020-10-05 15:10 | ERPHSYRPT ---
- History of Present Illness Time Seen by Provider: 10/05/20 14:32 Source: patient Exam Limitations: no limitations Patient Subjective Stated Complaint: Right shoulder pain-Post op pain Triage Nursing Assessment: Patient ambulated back to ED and transferred self to bed. Patient A+O X3. Patient's skin pink, warm and dry. Patient states she had right shoulder surgery to her labrim and bicep on 09/29/[address] Good. Patient states her pain is unbearable today and during her PT was sent to ER. Patient states she was prescribed [place] and Percocet, but both have made her sick and vomit. Patient complains of right shoulder constant throbbing pain 03/19. Physician History: 40 years old female with recent right shoulder surgery at [facility] orthopedics presented in the ER with increasing pain since surgery. Patient was initially given [place] and later on Percocet but could not take any of them because of nausea and threw them away. Today patient was at a therapy and her pain was getting unbearable, is sent in here for symptomatic treatment. Patient reports sharp shooting moderate to severe intensity pain in the right shoulder especially with movements and activity and partial relief with taking Tylenol and resting. No increased swelling numbness tingling or weakness of right upper extremity. Occurred: days ago (6) Quality: sharpness Severity of Pain-Max: severe Severity of Pain-Current: severe Extremities Pain Location: shoulder: right Modifying Factors: Improves With: immobilization, rest. Worsens With: movement Associated Symptoms: none Allergies/Adverse Reactions: ketorolac [From Toradol] Allergy (Intermediate, Verified 10/05/20 14:36) Rash Home Medications: estradioL [Estradiol] 4 mg PO DAILY 10/05/20 [History] Hx Tetanus, Diphtheria Vaccination/Date Given: No Hx Influenza Vaccination/Date Given: No Hx Pneumococcal Vaccination/Date Given: No Immunizations Up to Date: Yes Travel Risk - International Travel Have you traveled outside of the country in past 3 weeks: No - Coronavirus Screening Are you exhibiting any of the following symptoms?: No Close contact with a COVID-19 positive Pt in past 14-21 Days: No - Vaccine Status Have you recieved a Covid-19 vaccination: No - Review of Systems Constitutional: No Symptoms Eyes: No Symptoms Ears, Nose, & Throat: No Symptoms Respiratory: No Symptoms Cardiac: No Symptoms Abdominal/Gastrointestinal: Nausea Genitourinary Symptoms: No Symptoms Musculoskeletal: Joint Pain, Joint Swelling Neurological: No Symptoms Psychological: No Symptoms Endocrine: No Symptoms Hematologic/Lymphatic: No Symptoms - Past Medical History Pertinent Past Medical History: Yes Neurological History: No Pertinent History ENT History: No Pertinent History Cardiac History: No Pertinent History Respiratory History: Other Endocrine Medical History: No Pertinent History Musculoskeletal History: No Pertinent History GI Medical History: No Pertinent History History: No Pertinent History Psycho-Social History: No Pertinent History Female Reproductive Disorders: Other Other Medical History: Current everyday smoker. Takes hormone replacement therapy from menopause symptoms from hysterectomy. - Past Surgical History Past Surgical History: Yes Neuro Surgical History: No Pertinent History Cardiac: No Pertinent History Respiratory: No Pertinent History Gastrointestinal: Cholecystectomy Genitourinary: No Pertinent History Musculoskeletal: No Pertinent History, Orthopedic Surgery Female Surgical History: Hysterectomy, Tubal Ligation Other Surgical History: right hip labram repair 2016 milk duct removed from right breast noncancerouls. fatty tumor removed from right side. Right shoulder on 09/29/2020 - Social History Smoking Status: Unknown if ever smoked How long have you smoked: 14 years Exposure to second hand smoke: No Drug Use: none Patient Lives Alone: No - Female History Hx Last Menstrual Period: hysterectomy Hx Now: No - Nursing Vital Signs Nursing Vital Signs: Initial Vital Signs Temperature 96.4 F 10/05/20 14:39 Pulse Rate 88 10/05/20 14:39 Respiratory Rate 18 10/05/20 14:39 Blood Pressure 156/67 10/05/20 14:39 O2 Sat by Pulse Oximetry 98 10/05/20 14:39 Pain Scale Pain Intensity 10 - Physical Exam General Appearance: no apparent distress, alert, anxiety Neck Exam: normal inspection, supple, full range of motion Cardiovascular/Respiratory Exam: normal breath sounds, regular rate/rhythm Abdominal Exam: non-tender, soft, no organomegaly Back Exam: normal inspection, normal range of motion (HE DOES NOT WANT TO BE ADMITTED appendectomy) Shoulder Exam: bone tenderness, limited ROM, pain, soft tissue tenderness, swelling (Recent surgery and sling.) Elbow/Forearm Exam: normal inspection, non-tender Wrist Exam: normal inspection Hand Exam: normal inspection, non-tender Neuro/Tendon Exam: normal sensation, normal motor functions Mental Status Exam: alert, 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, cooperative Skin Exam: normal color SpO2 Interpretation: normal SpO2: 98 O2 Delivery: Room Air Ordered Tests: Medication Summary Discontinued Medications Generic Name Dose Route Start Last Admin Trade Name Freq PRN Reason Stop Dose Admin Morphine Sulfate 4 mg 10/05/20 14:54 10/05/20 15:03 Morphine Sulfate 4 Mg Inj IM 10/05/20 14:55 4 mg STAT ONE Administration Morphine Sulfate Confirm 10/05/20 14:58 Morphine Sulfate 4 Mg Inj Administered 10/05/20 14:59 Dose 4 mg .ROUTE .STK-MED ONE Ondansetron HCl 4 mg 10/05/20 14:55 10/05/20 15:04 Zofran Odt 4 Mg PO 10/05/20 14:56 4 mg STAT ONE Administration Ondansetron HCl Confirm 10/05/20 14:58 Zofran Odt 4 Mg Administered 10/05/20 14:59 Dose 4 mg .ROUTE .STK-MED ONE - Progress Progress Note: 10/05/20 15:30 She is given morphine and ODT Zofran, on reevaluation feeling better. I would start her on tramadol and Zofran to go home. Recommended outpatient follow-up with her surgeon. - Departure Departure Disposition: Home Clinical Impression: Acute postoperative pain of right shoulder Condition: Stable Critical Care Time: No Referrals: MARCELINA LIRIANO [Primary Care Provider] - Follow Up with PCP/3 days LIZZETTE GOOD [NON-STAFF PHY W/O PRIVILEGES] - (1-2 days for reevaluation) Additional Instructions: Take Tylenol and tramadol as needed. Take Zofran as needed for nausea and vomiting. Follow-up with your primary orthopedic surgeon for reevaluation in 1 to 2 days. Return to ER for worsening pain/vomiting/numbness tingling weakness of right upper extremity. Prescriptions: Ondansetron ODT 4 MG [Zofran Odt 4 mg] 4 mg PO Q6H PRN PRN #10 tab.rapdis PRN Reason: Vomiting Tramadol HCl 50 mg [Ultram 50 mg] 50 mg PO Q8H PRN PRN 3 Days #12 tablet PRN Reason: Pain
[2020-10-05 16:12] VITALS: BP 112/61; PULSE 78
== END 2020-10-05 16:13 | disposition home or self-care (01) ==
LOC: ED 14:30
DX: M25.511 Pain in right shoulder (principal); M25.411 Effusion, right shoulder; Z98.890 Other specified postprocedural states
CPT/HCPCS: 96372; 99283; J2270; Q0162

== ENCOUNTER 2021-12-24 20:50 | Emergency (ER) | payer OTHER ==
[2021-12-24] MEDS ORDERED: DUONEB 0.5-3 MG/3 ml Neb IH ONE ×2 (21:40→21:48)
[2021-12-24] MEDS ORDERED: solu-MEDROL 125 MG, Sterile H2O 10 ml 2 ML IV ONE ×2 (21:40)
[2021-12-24] MEDS ORDERED: solu-MEDROL ONE (21:43)
--- NOTE | 2021-12-24 21:44 | ERPHSYRPT ---
- History of Present Illness Time Seen by Provider: 12/24/21 20:58 Historian: patient Exam Limitations: no limitations Patient Subjective Stated Complaint: pt states she has been having chest pain all day. states pain is worse when she takes a deep breath and describes as stabbing pain. Triage Nursing Assessment: pt alert and oriented, answers questions approp. pt ambulatory with steady gait noted. respirations nonlabored. lungs cta bilat. skin warm and dry. Physician History: 41-year-old female presented in the ER with chief complaint of cough with chest pain. Patient reports she has been coughing off and on for almost 2 weeks, was evaluated outpatient and received breathing treatment and steroid course with no significant relief. Patient reports coughing multiple times and feeling soreness all over and hurts to take a deep breath. Reports burning sensation and sometimes sharp pain. Getting out of breath with ambulation. Patient is taking hormones. No history of blood clots. No history of CAD. Timing/Duration: today, constant, gradual onset, worse Activities at Onset: rest Quality: sharpness Location: substernal Chest Pain Radiation: no radiation Severity of Pain-Max: moderate Severity of Pain-Current: moderate Modifying Factors: Worsens With: coughing Associated Symptoms: shortness of breath, cough, hurts to breathe, chills Prior Chest Pain/Cardiac Workup: no prior cardiac workup Nitro Today/Relief: no nitro taken today Aspirin Treatment Today: no aspirin today Allergies/Adverse Reactions: ketorolac [From Toradol] Allergy (Intermediate, Verified 12/24/21 20:53) Rash Home Medications: estradioL [Estradiol] 4 mg PO DAILY 10/05/20 [History] Hx Tetanus, Diphtheria Vaccination/Date Given: Yes Hx Influenza Vaccination/Date Given: Yes Hx Pneumococcal Vaccination/Date Given: No Immunizations Up to Date: Yes Travel Risk - International Travel Have you traveled outside of the country in past 3 weeks: No - Coronavirus Screening Are you exhibiting any of the following symptoms?: Yes Symptoms: Fever, Shortness of Breath Close contact with a COVID-19 positive Pt in past 14-21 Days: No - Vaccine Status Have you recieved a Covid-19 vaccination: Yes 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: [employer] - Review of Systems Constitutional: No Symptoms Eyes: No Symptoms Ears, Nose, & Throat: No Symptoms Respiratory: Cough Cardiac: Chest Pain Abdominal/Gastrointestinal: No Symptoms Genitourinary Symptoms: No Symptoms Musculoskeletal: No Symptoms Skin: No Symptoms Neurological: No Symptoms Endocrine: No Symptoms Hematologic/Lymphatic: No Symptoms - Past Medical History Pertinent Past Medical History: Yes Neurological History: No Pertinent History ENT History: No Pertinent History Cardiac History: No Pertinent History Respiratory History: Other Endocrine Medical History: No Pertinent History Musculoskeletal History: No Pertinent History GI Medical History: No Pertinent History History: No Pertinent History Psycho-Social History: No Pertinent History Female Reproductive Disorders: Other Other Medical History: Takes hormone replacement therapy from menopause symptoms from hysterectomy. - Past Surgical History Past Surgical History: Yes Neuro Surgical History: No Pertinent History Cardiac: No Pertinent History Respiratory: No Pertinent History Gastrointestinal: Cholecystectomy Genitourinary: No Pertinent History Musculoskeletal: No Pertinent History, Orthopedic Surgery Female Surgical History: Hysterectomy, Tubal Ligation Other Surgical History: right hip labram repair 2016 milk duct removed from right breast noncancerouls. fatty tumor removed from right side. Right shoulder on 09/29/2020. 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 blind in rt eye - Social History Smoking Status: Former smoker How long have you smoked: 14 years Exposure to second hand smoke: No Drug Use: none Patient Lives Alone: No - Female History Hx Last Menstrual Period: hyster Hx Now: No - Nursing Vital Signs Nursing Vital Signs: Initial Vital Signs Pulse Rate 98 H 12/24/21 20:56 Respiratory Rate 22 12/24/21 20:56 Blood Pressure 147/92 12/24/21 20:56 O2 Sat by Pulse Oximetry 99 12/24/21 20:56 Pain Scale Pain Intensity 6 - Physical Exam General Appearance: no apparent distress, alert Eye Exam: PERRL/EOMI Ears, Nose, Throat Exam: TMs normal, pharyngeal erythema Neck Exam: normal inspection, non-tender, supple, full range of motion Respiratory Exam: wheezing, No respiratory distress Cardiovascular Exam: regular rate/rhythm, normal heart sounds Gastrointestinal/Abdomen Exam: soft, No tenderness Back Exam: normal inspection, normal range of motion Extremity Exam: normal inspection, normal range of motion Neurologic Exam: alert, 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, cooperative Skin Exam: normal color SpO2 Interpretation: normal SpO2: 99 O2 Delivery: Room Air - Course EKG Interpreted by Me: RATE (105), Sinus Rhythm, NORMAL AXIS, NORMAL INTERVALS, Non-specific ST Changes Ordered Tests: Active Orders 24 hr Category Date Time Status CHEST 1 VIEW (PORTABLE) Stat Exams 12/24/21 21:41 Taken BLOOD CULTURE Stat Lab 12/24/21 22:30 Received CBC W DIFF Stat Lab 12/24/21 21:00 Completed CMP Stat Lab 12/24/21 21:00 Completed D-DIMER QUANTITATIVE Stat Lab 12/24/21 21:00 Completed Lactic Acid Stat Lab 12/24/21 21:50 Completed NT PRO BNP Stat Lab 12/24/21 21:00 Completed TROPONIN Q3H Lab 12/24/21 21:00 Completed TROPONIN Q3H Lab 12/25/21 00:45 Ordered TROPONIN Q3H Lab 12/25/21 03:45 Ordered TROPONIN Q3H Lab 12/25/21 06:45 Ordered TROPONIN Q3H Lab 12/25/21 09:45 Ordered Respiratory Therapy Assessment DAILY RT 12/24/21 21:58 Active Medication Summary Discontinued Medications Generic Name Dose Route Start Last Admin Trade Name Freq PRN Reason Stop Dose Admin Albuterol/Ipratropium 3 ml 12/24/21 21:40 12/24/21 21:58 Ipratropium/Albuterol Sulfate 3 Ml Ampul.Neb IH 12/24/21 21:41 3 ml STAT ONE Administration Albuterol/Ipratropium Confirm 12/24/21 21:48 Ipratropium/Albuterol Sulfate 3 Ml Ampul.Neb Administered 12/24/21 21:49 Dose 3 ml IH .STK-MED ONE Methylprednisolone Sodium 0 mg 12/24/21 21:40 12/24/21 21:44 Succinate 125 mg/ Sterile IV 12/24/21 21:41 125 mg Water 2 ml STAT ONE Administration Methylprednisolone Sodium Succinate Confirm 12/24/21 21:43 Methylprednis Sod Succ 125 Mg/2 Ml Vial Administered 12/24/21 21:44 Dose 125 mg .ROUTE .STK-MED ONE Lab/Rad Data: Laboratory Result Diagrams 12/24/21 21:00 12/24/21 21:00 Laboratory Results 12/24/21 12/24/21 12/24/21 Range/Units 21:50 21:00 21:00 WBC (4.0-10.5) x10^3/uL RBC (4.1-5.4) x10^6/uL Hgb (12.0-16.0) g/dL Hct (35-47) % MCV (78-100) fL MCH (26-32) pg MCHC (32-36) g/dL RDW (11.5-14.0) % Plt Count (150-450) x10^3/uL MPV (7.5-11.0) fL Gran % (36.0-66.0) % Immature Gran % (Auto) (0.00-0.4) % Nucleat RBC Rel Count (0.00-0.1) % Eos # (Auto) (0-0.5) x10^3/uL Immature Gran # (Auto) (0.00-0.03) x10^3u/L Absolute Lymphs (auto) (1.0-4.6) x10^3/uL Absolute Monos (auto) (0.0-1.3) x10^3/uL Absolute Nucleated RBC (0.00-0.01) x10^3u/L Lymphocytes % (24.0-44.0) % Monocytes % (0.0-12.0) % Eosinophils % (0.00-5.0) % Basophils % (0.0-0.4) % Absolute Granulocytes (1.4-6.9) x10^3/uL Basophils # (0-0.4) x10^3/uL D-Dimer 0.19 (0.0-0.50) mg/L Sodium (137-145) mmol/L Potassium (3.5-5.1) mmol/L Chloride (98-107) mmol/L Carbon Dioxide (22-30) mmol/L Anion Gap (5-15) MEQ/L BUN (7-17) mg/dL Creatinine (0.52-1.04) mg/dL Estimated GFR ML/MIN Glucose (74-106) mg/dL Lactic Acid 2.0 (0.4-2.0) Calcium (8.4-10.2) mg/dL Total Bilirubin (0.2-1.3) mg/dL AST (14-36) U/L ALT (0-35) U/L Alkaline Phosphatase (38-126) U/L Troponin I < 0.012 (0.000-0.034) ng/mL NT-Pro-B Natriuret Pep (0-450) pg/mL Serum Total Protein (6.3-8.2) g/dL Albumin (3.5-5.0) g/dL 12/24/21 12/24/21 Range/Units 21:00 21:00 WBC 9.6 (4.0-10.5) x10^3/uL RBC 4.49 (4.1-5.4) x10^6/uL Hgb 13.9 (12.0-16.0) g/dL Hct 40.0 (35-47) % MCV 89.1 (78-100) fL MCH 31.0 (26-32) pg MCHC 34.8 (32-36) g/dL RDW 11.6 (11.5-14.0) % Plt Count 308 (150-450) x10^3/uL MPV 9.0 (7.5-11.0) fL Gran % 64.6 (36.0-66.0) % Immature Gran % (Auto) 0.2 (0.00-0.4) % Nucleat RBC Rel Count 0.0 (0.00-0.1) % Eos # (Auto) 0.17 (0-0.5) x10^3/uL Immature Gran # (Auto) 0.02 (0.00-0.03) x10^3u/L Absolute Lymphs (auto) 2.61 (1.0-4.6) x10^3/uL Absolute Monos (auto) 0.54 (0.0-1.3) x10^3/uL Absolute Nucleated RBC 0.00 (0.00-0.01) x10^3u/L Lymphocytes % 27.2 (24.0-44.0) % Monocytes % 5.6 (0.0-12.0) % Eosinophils % 1.8 (0.00-5.0) % Basophils % 0.6 (0.0-0.4) % Absolute Granulocytes 6.21 (1.4-6.9) x10^3/uL Basophils # 0.06 (0-0.4) x10^3/uL D-Dimer (0.0-0.50) mg/L Sodium 137 (137-145) mmol/L Potassium 3.5 (3.5-5.1) mmol/L Chloride 103 (98-107) mmol/L Carbon Dioxide 24 (22-30) mmol/L Anion Gap 14.1 (5-15) MEQ/L BUN 15 (7-17) mg/dL Creatinine 0.70 (0.52-1.04) mg/dL Estimated GFR > 60.0 ML/MIN Glucose 118 H (74-106) mg/dL Lactic Acid (0.4-2.0) Calcium 9.0 (8.4-10.2) mg/dL Total Bilirubin 0.30 (0.2-1.3) mg/dL AST 18 (14-36) U/L ALT 13 (0-35) U/L Alkaline Phosphatase 65 (38-126) U/L Troponin I (0.000-0.034) ng/mL NT-Pro-B Natriuret Pep 24.7 (0-450) pg/mL Serum Total Protein 7.6 (6.3-8.2) g/dL Albumin 4.3 (3.5-5.0) g/dL - Progress Progress: re-examined Air Movement: good Progress Note: 12/24/21 22:50 41-year-old is evaluated for worsening cough for 2 weeks. She is given DuoNeb and steroid, on reevaluation feeling better. Chest x-ray showed questionable infiltrative process/airspace disease, she is maintaining oxygen saturation on room air. Normal white count, grossly unremarkable chemistries and negative D- dimer/troponin. I believe she has a bronchitis, given a dose of doxycycline and short course of steroids. Recommended continue with breathing treatments. Outpatient follow-up recommended. Discussed signs symptoms of worsening needing return to ER which she seems understanding. Blood Culture(s) Obtained: Yes Antibiotics given: Yes Counseled pt/family regarding: lab results, diagnosis, need for follow-up, rad results - Departure Departure Disposition: Home Clinical Impression: Bronchitis Condition: Stable Critical Care Time: No Referrals: MARCELINA LIRIANO [Primary Care Provider] - Follow Up with PCP/3 days Instructions: Acute Bronchitis, Adult (DC) Additional Instructions: Continue with breathing treatments. Follow-up with primary care for reevaluation. Return to ER for worsening cough or if develop fever chills etc. Prescriptions: Prednisone 20 mg [Deltasone 20 mg] 60 mg PO DAILY 5 Days #15 tablet Doxycycline Hyclate 100 mg [Vibramycin 100 MG] 100 mg PO BID #14 tab
[2021-12-24 21:50] LABS: Absolute Neutrophil Ct (ANC) 6.21 x10^3/uL (1.4-6.9); Basophil (Absolute #) 0.06 x10^3/uL (0-0.4); Eosinophil % 1.8 % (0.00-5.0); Eosinophil (Absolute #) 0.17 x10^3/uL (0-0.5); Hemoglobin 13.9 g/dL (12.0-16.0); Lymphocyte (Absolute #) 2.61 x10^3/uL (1.0-4.6); Lymphocytes % 27.2 % (24.0-44.0); Mean Cell Volume 89.1 fL (78-100); Mean Corpuscular Hgb Concent. 34.8 g/dL (32-36); Monocyte (Absolute #) 0.54 x10^3/uL (0.0-1.3); Monocytes % 5.6 % (0.0-12.0); Neutrophil % 64.6 % (36.0-66.0); Platelet Count 308 x10^3/uL (150-450); Red Blood Count 4.49 x10^6/uL (4.1-5.4); Red Cell Distribution Width 11.6 % (11.5-14.0); White Blood Count 9.6 x10^3/uL (4.0-10.5)
[2021-12-24 22:07] LABS: ALBUMIN 4.3 g/dL (3.5-5.0); ALKALINE PHOSPHATASE 65 U/L (38-126); ANION GAP 14.1 MEQ/L (5-15); BLOOD UREA NITROGEN 15 mg/dL (7-17); CHLORIDE 103 mmol/L (98-107); Carbon Dioxide 24 mmol/L (22-30); EST GLOMERULAR FILTRATION RATE > 60.0 ML/MIN; Glucose 118 mg/dL (74-106); NT PRO BNP 24.7 pg/mL (0-450); Potassium 3.5 mmol/L (3.5-5.1); SGOT/AST 18 U/L (14-36); SGPT/ALT 13 U/L (0-35); SODIUM 137 mmol/L (137-145); Total Protein 7.6 g/dL (6.3-8.2)
[2021-12-24] MEDS ORDERED: Vibramycin 100 MG PO ONE (22:48)
[2021-12-24] MEDS ORDERED: Vibramycin 100 MG ONE (22:55)
[2021-12-24 23:14] LABS: INFLUENZA A NEGATIVE (NEGATIVE); INFLUENZA B NEGATIVE (NEGATIVE); RESPIRATORY SYNCTIAL VIRUS NEGATIVE (Negative); SARS-CoV-2 Xpert Express NEGATIVE (NEGATIVE)
[2021-12-24 23:32] VITALS: BP 140/77; PULSE 86; O2SAT 97
--- NOTE | 2021-12-25 09:04 | XRAY ---
Indication: Cough. Comparison: December 19, 2021 Portable chest again demonstrates normal heart, lungs, and bony thorax.
== END 2021-12-24 23:43 | disposition home or self-care (01) ==
LOC: ED 20:50
DX: J40 Bronchitis, not specified as acute or chronic (principal); R05.9 Cough, unspecified; R07.9 Chest pain, unspecified; Z79.890 Hormone replacement therapy; Z79.52 Long term (current) use of systemic steroids
CPT/HCPCS: 0241U; 36415; 71045; 80053; 83605; 83880; 84484; 85025; 85379; 87040; 94640; 96374; 99284; J2930; A9270-GY

== ENCOUNTER 2022-08-27 06:00 | Day surgery (SDC) | payer OTHER ==
[2022-08-27] MEDS ORDERED: Lactated Ringers 1,000 ML IV SCH (06:30)
[2022-08-27] MEDS ORDERED: DIPRIVAN 200 MG/20 ML IV ONE ×2 (07:56→08:09)
[2022-08-27] MEDS ORDERED: Xylocaine-Mpf 2% 5 Ml Vial ONE (07:56)
[2022-08-27] MEDS ORDERED: Versed 2 MG/2 ML Injection ONE (07:57)
[2022-08-27 08:47] VITALS: O2SAT 99
[2022-08-27 09:08] VITALS: BP 95/54; PULSE 64
--- NOTE | 2022-08-27 14:16 | OP ---
SURGERY DATE/TIME: 08/27/2022 0759 PREOPERATIVE DIAGNOSIS: History of colon polyps and constipation. POSTOPERATIVE DIAGNOSIS: Mild area of colitis in the sigmoid colon otherwise normal colon. PROCEDURE: Colonoscopy with cold forceps biopsy. SURGEON: Dr. Herr. ANESTHESIA: MAC. Medications given by anesthesia department. HISTORY: The patient is a 42-year-old white female who presents now with history of polyps of the colon and more recent problems with constipation. The patient was felt to need to have endoscopic evaluation. She was appraised of the risks of the procedure including the risk of perforation, phlebitis, untoward reaction to medication, bleeding and missed lesions. The patient verbalized her understanding and desired to have the procedure performed. DESCRIPTION OF PROCEDURE: The patient was given the medications by the anesthesia department. She had continuous pulse oximetry, ECG monitoring and intermittent blood pressure monitoring during the examination. She was placed in left lateral decubitus position. A digital rectal examination was performed and revealed normal anal sphincter tone. The flexible Olympus pediatric colonoscope was used to intubate the rectum. A view of the colon was developed sequentially to the cecum including a short distance in the terminal ileum. Upon insertion and withdrawal, including a retroflex view in the rectum, there was noted an area of approximately 10 cm in length in the mid sigmoid colon that appeared to be inflamed. We did cold biopsies of this area to rule out underlying colitis. The scope was removed from the patient who tolerated the procedure well and was sent back to OP recovery in good condition. The prep was noted to be fair to good.
== END 2022-08-27 09:15 | disposition home or self-care (01) ==
LOC: SDC 06:00
PROVIDERS: ATTEND Family Medicine
DX: Z09 Encounter for follow-up examination after completed treatment for conditions other than malignant neoplasm (principal); Z86.010 Personal history of colon polyps; K59.00 Constipation, unspecified; K52.9 Noninfective gastroenteritis and colitis, unspecified
CPT/HCPCS: J2250; J2704

== ENCOUNTER 2024-05-02 17:54 | Emergency (ER) | payer OTHER ==
[2024-05-02 18:06] VITALS: TEMP 97.3
--- NOTE | 2024-05-02 19:21 | ERPHSYRPT ---
- History of Present Illness Time Seen by Provider: 05/02/24 19:16 Source: patient Exam Limitations: clinical condition Patient Subjective Stated Complaint: pt is here for sore throat. unknown how long, pt is a poor hitorian. family states she has also had a uti for last 2 month, the pt however states that she will call [facility] on saturday and does not want to be seen for this. pt has melanoma behind right eye. it is unclear if this is in remission, family states she has not been eating or driniking well Triage Nursing Assessment: pt alert, walked in, resp easy, tenderness to right side of throat, skin w/d/p. has chills, moves all ext well, Physician History: The patient presents with a sore throat and difficulty swallowing. She is accompanied by her sister. Sore throat has been present for a couple of days, accompanied by difficulty swallowing. No fever, but she feels cold. She has not taken any medication due to the inability to swallow. No cough, congestion, nausea, or vomiting. Difficulty eating has been ongoing for a couple of months. She has a history of radiation treatment, which may be relevant to her current symptoms. History of recurrent urinary tract infections, previously treated with antib iotics including Bactrim, which was ineffective. She has been admitted for similar issues when antibiotics failed. No hematuria for three days, indicating some improvement. She mentions feeling 'delirious' upon returning home, and her sister expressed concern about her mental state. Timing/Duration: gradual onset Severity: severe ENT Location: throat Prearrival Treatment: no prearrival treatment Modifying Factors: Improves With: nothing Associated Symptoms: chills, neck pain, poor fluid intake, poor solids intake, swollen glands, sore throat, difficulty swallowing, voice change, No cough, No fever Allergies/Adverse Reactions: ketorolac [From Toradol] Allergy (Intermediate, Verified 05/02/24 18:06) Rash acetaminophen [From [place]] Adverse Reaction (Mild, Verified 05/02/24 18:06) Stomach Pain hydrocodone [From [place]] Adverse Reaction (Mild, Verified 05/02/24 18:06) Stomach Pain Home Medications: estradioL [Estradiol] 4 mg PO DAILY 10/05/20 [History] Montelukast Sodium 10 mg [Singulair 10 MG] 10 mg PO DAILY 08/27/22 [History] ALPRAZolam 1 MG [Xanax 1 mg] 1 ea DAILY 05/02/24 [History] Hx Tetanus, Diphtheria Vaccination/Date Given: Yes Hx Influenza Vaccination/Date Given: Yes Hx Pneumococcal Vaccination/Date Given: No Immunizations Up to Date: Yes Travel Risk - International Travel Have you traveled outside of the country in past 3 weeks: No - Emerging Infectious Disease Are you exhibiting symptoms associated with any current EIDs: No - Review of Systems All Other Systems: Reviewed and Negative - Past Medical History Pertinent Past Medical History: Yes Neurological History: No Pertinent History ENT History: Other Cardiac History: Other Respiratory History: No Pertinent History Endocrine Medical History: Other Musculoskeletal History: No Pertinent History GI Medical History: No Pertinent History History: No Pertinent History Psycho-Social History: No Pertinent History Female Reproductive Disorders: Other Other Medical History: MITRAL VALVE PROLAPSE, CANCEROUS TUMOR IN THE R EYE. - Past Surgical History Past Surgical History: Yes Neuro Surgical History: No Pertinent History Cardiac: No Pertinent History Respiratory: No Pertinent History Gastrointestinal: Cholecystectomy Genitourinary: No Pertinent History Musculoskeletal: No Pertinent History, Orthopedic Surgery Female Surgical History: Hysterectomy, Tubal Ligation Other Surgical History: right hip labram repair 2015, ACP on right hip, right hip reshaped, milk duct removed from bilateral breast noncancerous. fatty tumor removed from right side. Right shoulder on 09/29/2020. 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 blind in rt eye,. left menicus - Female History Hx Last Menstrual Period: hyster Hx Now: No - Social History Smoking Status: Former smoker How long have you smoked: 14 years Exposure to second hand smoke: No Drug Use: none Patient Lives Alone: No - Social Determinants of Health Will the patient participate in the screening: Unable to obtain - Nursing Vital Signs Nursing Vital Signs: Initial Vital Signs Temperature 97.3 F 05/02/24 18:05 Pulse Rate 102 H 05/02/24 18:05 Respiratory Rate 16 05/02/24 18:05 Blood Pressure 144/70 05/02/24 18:05 O2 Sat by Pulse Oximetry 99 05/02/24 18:05 Pain Scale Pain Intensity 10 - Physical Exam General Appearance: lethargy Throat Exam: tonsillar exudate, tonsillar swelling, voice changes Neck Exam: lymphadenopathy (R), lymphadenopathy (L) Cardiovascular/Respiratory Exam: normal breath sounds, regular rate/rhythm, heart sounds normal, no respiratory distress Neurologic Exam: alert, cooperative, disoriented, confusion Skin Exam: warm, pale SpO2 Interpretation: normal SpO2: 99 O2 Delivery: Room Air - Course Nursing assessment & vital signs reviewed: Yes - CT Exams Soft Tissue Neck CT Interpretation: Tele-radiologist Report, Other (No abscess) Ordered Tests: Active Orders 24 hr Category Date Time Status Social Problems Specialist STAT Care 05/02/24 19:22 Completed Pulse Oximetry (ED) STAT Care 05/02/24 19:22 Completed NECK WITH CONTRAST [CT] Stat Exams 05/02/24 19:23 Completed CBC W DIFF Stat Lab 05/02/24 19:45 Completed CMP Stat Lab 05/02/24 19:45 Completed CULTURE, THROAT Stat Lab 05/02/24 19:45 Received CULTURE,URINE Stat Lab 05/02/24 19:41 Received Lactic Acid Stat Lab 05/02/24 19:31 Completed UA W/RFX UR CULTURE Stat Lab 05/02/24 19:41 Completed Medication Summary Discontinued Medications Generic Name Dose Route Start Last Admin Trade Name Freq PRN Reason Stop Dose Admin Dexamethasone Sodium Phosphate 10 mg 05/02/24 20:09 05/02/24 20:14 Dexamethasone Sod Phosphate 10 Mg/Ml IM 05/02/24 20:10 10 mg STAT ONE Administration Dexamethasone Sodium Phosphate Confirm 05/02/24 20:12 Dexamethasone Sod Phosphate 10 Mg/Ml Administered 05/02/24 20:13 Dose 10 mg .ROUTE .STK-MED ONE Sodium Chloride 1,000 mls @ 999 mls/hr 05/02/24 20:32 05/02/24 20:42 Sodium Chloride 0.9% 1000 Ml IV 05/02/24 21:32 999 mls/hr .Q1H1M STA Administration Sodium Chloride Confirm 05/02/24 20:35 Sodium Chloride 0.9% 1000 Ml Administered 05/02/24 20:36 Dose 1,000 mls @ ud .ROUTE .STK-MED ONE Penicillin G Benzathine 1.2 mu 05/02/24 19:22 05/02/24 19:39 Penicillin G Benzathine 1.2 Mu/2 Ml Syringe IM 05/02/24 19:23 1.2 mu STAT ONE Administration Penicillin G Benzathine Confirm 05/02/24 19:33 Penicillin G Benzathine 1.2 Mu/2 Ml Syringe Administered 05/02/24 19:34 Dose 1.2 mu IM .STK-MED ONE Phenol 1 ml 05/02/24 19:24 05/02/24 19:39 Phenol/Sodium Phenolate 180 Ml Bottle PO 05/02/24 19:25 1 ml ONCE ONE Administration Lab/Rad Data: Laboratory Result Diagrams 05/02/24 19:45 05/02/24 19:45 Laboratory Results 05/02/24 05/02/24 05/02/24 Range/Units 19:45 19:45 19:45 WBC 6.5 (3.98-10.04) x10^3/uL RBC 4.48 (3.93-5.22) x10^6/uL Hgb 13.8 (11.2-15.7) g/dL Hct 38.4 (34.1-44.9) % MCV 85.7 (79.4-94.8) fL MCH 30.8 (25.6-32.2) pg MCHC 35.9 H (32.2-35.5) g/dL RDW 11.9 (11.7-14.4) % Plt Count 266 (182-369) x10^3/uL MPV 9.2 L (9.4-12.3) fL Gran % 63.0 (34.0-71.1) % Immature Gran % (Auto) 0.3 (0.001-0.429) % Nucleat RBC Rel Count 0.0 (0.00-0.2) % Eos # (Auto) 0.03 L (0.04-0.36) x10^3/uL Immature Gran # (Auto) 0.02 (0.001-0.031) x10^3u/L Absolute Lymphs (auto) 1.79 (1.18-3.74) x10^3/uL Absolute Monos (auto) 0.52 (0.24-0.86) x10^3/uL Absolute Nucleated RBC 0.00 (0.00-0.012) x10^3u/L Lymphocytes % 27.7 (19.3-51.7) % Monocytes % 8.0 (4.7-12.5) % Eosinophils % 0.5 L (0.7-5.8) % Basophils % 0.5 (0.1-1.2) % Absolute Granulocytes 4.08 (1.56-6.13) x10^3/uL Basophils # 0.03 (0.01-0.08) x10^3/uL Sodium 139 (135-145) mmol/L Potassium 3.5 (3.5-5.1) mmol/L Chloride 102 (98-107) mmol/L Carbon Dioxide 24 (22-30) mmol/L Anion Gap 16.4 H (5-15) MEQ/L BUN 6 L (7-17) mg/dL Creatinine 0.73 (0.52-1.04) mg/dL Estimated GFR 105.9 ML/MIN Glucose 89 (74-106) mg/dL Lactic Acid (0.4-2.0) Calcium 9.5 (8.4-10.2) mg/dL Total Bilirubin 0.80 (0.2-1.3) mg/dL AST 25 (14-36) U/L ALT 22 (0-35) U/L Alkaline Phosphatase 63 (38-126) U/L Serum Total Protein 8.6 H (6.3-8.2) g/dL Albumin 5.0 (3.5-5.0) g/dL Urine Color (Yellow) Urine Appearance (Clear) Urine pH (4.6-8.0) Ur Specific [place] (1.005-1.030) Urine Protein (Negative) Urine Glucose (UA) (Negative) mg/dL Urine Ketones (Negative) Urine Blood (Negative) Urine Nitrite (Negative) Urine Bilirubin (Negative) Urine Urobilinogen (0.2) mg/dL Ur Leukocyte Esterase (Negative) U Hyaline Cast (Auto) (0-2) /LPF Urine Microscopic RBC (0-5) /HPF Urine Microscopic WBC (0-5) /HPF Ur Epithelial Cells (None Seen) /HPF Urine Bacteria (None Seen) /HPF Urine Culture Reflexed (NO) Group A Strep Antibody NOT DETECTED (NEGATIVE) 05/02/24 05/02/24 Range/Units 19:41 19:31 WBC (3.98-10.04) x10^3/uL RBC (3.93-5.22) x10^6/uL Hgb (11.2-15.7) g/dL Hct (34.1-44.9) % MCV (79.4-94.8) fL MCH (25.6-32.2) pg MCHC (32.2-35.5) g/dL RDW (11.7-14.4) % Plt Count (182-369) x10^3/uL MPV (9.4-12.3) fL Gran % (34.0-71.1) % Immature Gran % (Auto) (0.001-0.429) % Nucleat RBC Rel Count (0.00-0.2) % Eos # (Auto) (0.04-0.36) x10^3/uL Immature Gran # (Auto) (0.001-0.031) x10^3u/L Absolute Lymphs (auto) (1.18-3.74) x10^3/uL Absolute Monos (auto) (0.24-0.86) x10^3/uL Absolute Nucleated RBC (0.00-0.012) x10^3u/L Lymphocytes % (19.3-51.7) % Monocytes % (4.7-12.5) % Eosinophils % (0.7-5.8) % Basophils % (0.1-1.2) % Absolute Granulocytes (1.56-6.13) x10^3/uL Basophils # (0.01-0.08) x10^3/uL Sodium (135-145) mmol/L Potassium (3.5-5.1) mmol/L Chloride (98-107) mmol/L Carbon Dioxide (22-30) mmol/L Anion Gap (5-15) MEQ/L BUN (7-17) mg/dL Creatinine (0.52-1.04) mg/dL Estimated GFR ML/MIN Glucose (74-106) mg/dL Lactic Acid 1.5 (0.4-2.0) Calcium (8.4-10.2) mg/dL Total Bilirubin (0.2-1.3) mg/dL AST (14-36) U/L ALT (0-35) U/L Alkaline Phosphatase (38-126) U/L Serum Total Protein (6.3-8.2) g/dL Albumin (3.5-5.0) g/dL Urine Color Yellow (Yellow) Urine Appearance Clear (Clear) Urine pH 6.0 (4.6-8.0) Ur Specific [place] 1.015 (1.005-1.030) Urine Protein Negative (Negative) Urine Glucose (UA) Negative (Negative) mg/dL Urine Ketones 40 A (Negative) Urine Blood Negative (Negative) Urine Nitrite Positive A (Negative) Urine Bilirubin Negative (Negative) Urine Urobilinogen 0.2 (0.2) mg/dL Ur Leukocyte Esterase Trace A (Negative) U Hyaline Cast (Auto) NONE SEEN (0-2) /LPF Urine Microscopic RBC 0-2 (0-5) /HPF Urine Microscopic WBC 11-20 A (0-5) /HPF Ur Epithelial Cells None Seen (None Seen) /HPF Urine Bacteria Many A (None Seen) /HPF Urine Culture Reflexed YES (NO) Group A Strep Antibody (NEGATIVE) - Progress Progress: improved Progress Note: Pharyngitis Sore throat with significant exudates, no fever but chills. Immunosuppressed due to recent radiation therapy for cancer. Differential includes bacterial versus viral pharyngitis; bacterial more concerning due to immunosuppression. Discussed monitoring for improvement over five days and follow-up with oncologist if no improvement. Risks include progression to severe infection. -Bicillin given -Throat culture sent -Labs ordered Recurrent Urinary Tract Infection (UTI) Persistent UTI despite Bactrim and another antibiotic. No hematuria for three days. History of recurrent UTIs requiring hospitalization. Discussed potential hospitalization and need for IV antibiotics if symptoms worsen or persist. - Continue current antibiotic regimen - Monitor for symptoms - Consider hospitalization if symptoms worsen or persist 05/02/24 20:11 UA shows signs of UTI remaining, screen negative for sepsis at this time. Will send Fosfomycin to pharmacy for 1 dose tx. Will give Decadron 10mg IM for throat pain and swelling. CT neg for abscess, sxs improved. Counseled pt/family regarding: lab results, diagnosis, need for follow-up, rad results Medical Desision Making - Diagnostic Testing Diagnostic test were ordered, analyzed, and reviewed by me: Yes Radiological Interpretation: Interpreted by me, Reviewed by me, Teleradiologist Report - Risk of complications The pt has a mod risk of morbidity or mortality based on: Need for prescription drug management - Departure Departure Disposition: Home Clinical Impression: UTI (urinary tract infection), Pharyngitis Condition: Stable Critical Care Time: No Referrals: MARCELINA LIRIANO [Primary Care Provider] - Follow up/PCP as directed Instructions: Sore Throat, Adult (DC), Viral Pharyngitis (DC) Prescriptions: Fosfomycin Tromethamine 3 gm PO DAILY 1 Days #1 packet
[2024-05-02] MEDS ORDERED: Bicillin L-A 1.2 Mu/2ML SYRINGE IM ONE (19:33)
[2024-05-02] MEDS: Bicillin L-A 1.2 Mu/2ML SYRINGE IM ONE (19:39)
[2024-05-02] MEDS: CHLORASEPTIC SPRAY 180 ML PO ONE (19:39)
[2024-05-02 19:49] LABS: Absolute Neutrophil Ct (ANC) 4.08 x10^3/uL (1.56-6.13); BASOPHIL % 0.5 % (0.1-1.2); Basophil (Absolute #) 0.03 x10^3/uL (0.01-0.08); Eosinophil % 0.5 % (0.7-5.8); Eosinophil (Absolute #) 0.03 x10^3/uL (0.04-0.36); Hematocrit 38.4 % (34.1-44.9); Hemoglobin 13.8 g/dL (11.2-15.7); IMMATURE GRAN # 0.02 x10^3u/L (0.001-0.031); IMMATURE GRAN % 0.3 % (0.001-0.429); Lymphocyte (Absolute #) 1.79 x10^3/uL (1.18-3.74); Lymphocytes % 27.7 % (19.3-51.7); Mean Cell Volume 85.7 fL (79.4-94.8); Mean Corpuscular Hemoglobin 30.8 pg (25.6-32.2); Mean Corpuscular Hgb Concent. 35.9 g/dL (32.2-35.5); Mean Platelet Volume 9.2 fL (9.4-12.3); Monocyte (Absolute #) 0.52 x10^3/uL (0.24-0.86); Platelet Count 266 x10^3/uL (182-369); Red Blood Count 4.48 x10^6/uL (3.93-5.22); Red Cell Distribution Width 11.9 % (11.7-14.4); White Blood Count 6.5 x10^3/uL (3.98-10.04)
[2024-05-02 19:56] LABS: Appearance Clear (Clear); Bacteria Many /HPF (None Seen); Bilirubin Negative (Negative); Blood Negative (Negative); Epithelial Cells None Seen /HPF (None Seen); Glucose, Urine Negative (Negative); Hyaline Casts NONE SEEN /LPF (0-2); Ketones 40 (Negative); Leukocyte Esterase Trace (Negative); Nitrite Positive (Negative); Protein,Urine Dip Negative (Negative); RBC 0-2 /HPF (0-5); Specific Gravity 1.015 (1.005-1.030); Urobilinogen 0.2 mg/dL (0.2)
[2024-05-02 20:10] LABS: ANION GAP 16.4 MEQ/L (5-15); BILIRUBIN,TOTAL 0.8 mg/dL (0.2-1.3); Calcium 9.5 mg/dL (8.4-10.2); Creatinine 1 0.73 mg/dL (0.52-1.04); EST GLOMERULAR FILTRATION RATE 105.9 ML/MIN; Potassium 3.5 mmol/L (3.5-5.1); Total Protein 8.6 g/dL (6.3-8.2)
[2024-05-02] MEDS ORDERED: DECADRON 10MG INJ. ONE (20:12)
[2024-05-02] MEDS: DECADRON 10MG INJ. IM ONE (20:14)
[2024-05-02] MEDS ORDERED: Sodium Chloride 0.9% 1000 ML 1,000 ML ONE (20:35)
[2024-05-02] MEDS: Sodium Chloride 0.9% 1000 ML 1,000 ML IV STA (20:42)
--- NOTE | 2024-05-02 22:48 | XRAY ---
CLINICAL HISTORY: neck pain COMPARISON: None. TECHNIQUE: A CT scan of the neck was performed with the administration of intravenous contrast. Sagittal and coronal reconstructions were obtained. 280 cc isovue 370 was administered intravenously for post-contrast images. One of the following dose reduction techniques was utilized for this exam: Automated exposure control, adjustment of the mA and/or kV according to patient size, and use of iterative reconstruction. FINDINGS: Nasopharynx: Normal size and appearance. No masses or abnormal enhancement. Oropharynx: Normal size and appearance. No masses or abnormal enhancement. Larynx and Hypopharynx: Normal appearance of the laryngeal structures. Vocal cords are normal in appearance and movement. No masses or abnormal enhancement. Thyroid Gland: Normal size and morphology. No nodules or masses. Normal enhancement post-contrast. Salivary Glands: Parotid, submandibular, normal in size and appearance. No evidence of sialadenitis or masses. Lymph Nodes: Bilateral mainly upper cervical lymph nodes, the largest in the right-sided in group 2a measuring 22x14 mm and the left one measuring 19X12 mm, and in right group III measuring 14X22 mm (all in axial dimensions ) These lymph nodes are oval in shape with no suspicious features Vascular Structures: Normal enhancement of the carotid arteries, jugular veins, and other major vessels post-contrast. No evidence of vascular malformations, aneurysms, or thrombosis. Soft Tissues: Normal appearance of the soft tissues of the neck. No abnormal masses, swelling, or fluid collections. Bones: Normal appearance of the cervical spine and surrounding bony structures. No fractures, lytic or sclerotic lesions. Airway: The trachea and main bronchi are patent. No evidence of tracheal or bronchial stenosis or masses. IMPRESSION: 1. No acute abnormalities 2. picture of bilateral mildly enlarged cervical lymphadenopathy likely of reactionary cause, for US correlation and close follow-up. Electronically Signed by: Karoline Harden MD. (05/02/2024 22:42:40 EST)
[2024-05-02 23:12] VITALS: BP 119/70; PULSE 75; RESP 21
[2024-05-03 02:59] VITALS: O2SAT 99
== END 2024-05-02 23:17 | disposition home or self-care (01) ==
LOC: ED 17:54
DX: N39.0 Urinary tract infection, site not specified (principal); J02.9 Acute pharyngitis, unspecified; Z79.899 Other long term (current) drug therapy
CPT/HCPCS: 36415; 70491; 80053; 81001; 83605; 85025; 87040; 87070; 87077; 87086; 87186; 87651; 93041; 94760; 96372; 99284; 99285; J0561; J1100; A9270-GY

== ENCOUNTER 2024-10-22 19:18 | Emergency (ER) | payer OTHER ==
[2024-10-22 19:32] VITALS: TEMP 97.5
--- NOTE | 2024-10-22 20:07 | ERPHSYRPT ---
- History of Present Illness Time Seen by Provider: 10/22/24 19:21 Source: patient Exam Limitations: no limitations Patient Subjective Stated Complaint: "I had an upper and lower scope this afternoon at [place] with Dr. Zepeda, and about an hour ago I started having pain and swelling in my throat". Triage Nursing Assessment: Pt presents to ER with complaints of swelling of the neck post upper and lower GI scope. Pt presents to ER and is alert and 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. Skin is pink, warm, and dry. Respirations are easy. Exterior neck is obviously swollen and tender upon exam. Tongue and throat don't appear red. Pt is constantly "clearing throat". She is able to communicate without difficulty. Abdomen is soft and nontender. Denies nausea/vomiting/diarrhea. Physician History: 44 years old female presented to the ER with complains of neck/throat swelling started almost an hour ago with progressive worsening. Patient reports she had upper and lower GI scope done with Dr. Zepeda this afternoon, was doing fine until an hour ago when it started. Reports scratchiness in the throat without difficulty breathing and it hurts to swallow. Has more swelling on the both sides neck with enlarged nodes. No fever or chills reported. Allergies/Adverse Reactions: ketorolac [From Toradol] Allergy (Intermediate, Verified 10/22/24 19:31) Rash acetaminophen [From [place]] Adverse Reaction (Mild, Verified 10/22/24 19:31) Stomach Pain hydrocodone [From [place]] Adverse Reaction (Mild, Verified 10/22/24 19:31) Stomach Pain Home Medications: estradioL [Estradiol] 4 mg PO HS 10/05/20 [History] Montelukast Sodium 10 mg [Singulair 10 MG] 10 mg PO DAILY 08/27/22 [History] ALPRAZolam 1 MG [Xanax 1 mg] 1 tab PO BIDPRN PRN 05/02/24 [History] Bupropion HCl 150 mg Sr [Wellbutrin SR 150 MG] 150 mg PO DAILY 10/22/24 [History] [place] Carbonate 300 mg [[place] Carbonate 300 MG] 300 mg PO DAILY 10/22/24 [History] Omalizumab [Xolair] 300 mg SQ Q30D 10/22/24 [History] Hx Tetanus, Diphtheria Vaccination/Date Given: No Hx Influenza Vaccination/Date Given: No Hx Pneumococcal Vaccination/Date Given: No Immunizations Up to Date: No Travel Risk - International Travel Have you traveled outside of the country in past 3 weeks: No - Emerging Infectious Disease Are you exhibiting symptoms associated with any current EIDs: No - Review of Systems Constitutional: No Symptoms Ears, Nose, & Throat: Throat Pain, Throat Swelling Respiratory: No Symptoms Cardiac: No Symptoms Abdominal/Gastrointestinal: No Symptoms Musculoskeletal: No Symptoms Skin: No Symptoms Neurological: No Symptoms Endocrine: No Symptoms Hematologic/Lymphatic: No Symptoms - Past Medical History Pertinent Past Medical History: Yes Neurological History: No Pertinent History ENT History: Other Cardiac History: Other Respiratory History: No Pertinent History Endocrine Medical History: Other Musculoskeletal History: No Pertinent History GI Medical History: No Pertinent History, Other History: No Pertinent History Psycho-Social History: Anxiety Female Reproductive Disorders: Other Other Medical History: MITRAL VALVE PROLAPSE, CANCEROUS TUMOR IN THE R EYE. - Past Surgical History Past Surgical History: Yes Neuro Surgical History: No Pertinent History Cardiac: No Pertinent History Respiratory: No Pertinent History Gastrointestinal: Cholecystectomy Genitourinary: No Pertinent History Musculoskeletal: No Pertinent History, Orthopedic Surgery Female Surgical History: Hysterectomy, Tubal Ligation Other Surgical History: right hip labram repair 2016, ACP on right hip, right hip reshaped, milk duct removed from bilateral breast noncancerous. fatty tumor removed from right side. Right shoulder on 09/29/2020. 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 blind in rt eye,. left menicus - Female History Hx Last Menstrual Period: n/a Hx Now: No - Social History Smoking Status: Never smoker Exposure to second hand smoke: No Drug Use: none - Social Determinants of Health Will the patient participate in the screening: Yes Do you worry about a steady place to live?: No Do you have any problems with any of the following?: No known problems In the past 12 months,have you had to go without utilities?: No Transportation Issues: No Has anyone in your support network made you feel unsafe?: No Have you or anyone in your house had to go w/o enough food: No - Nursing Vital Signs Nursing Vital Signs: Initial Vital Signs Temperature 97.5 F 10/22/24 19:23 Pulse Rate 65 10/22/24 19:23 Respiratory Rate 18 10/22/24 19:23 Blood Pressure 117/67 05/15/25 19:23 O2 Sat by Pulse Oximetry 100 10/22/24 19:23 Pain Scale Pain Intensity 4 - Physical Exam General Appearance: no apparent distress, alert Eye Exam: bilateral eye: normal inspection, PERRL, EOMI Nasal Exam: normal inspection Throat Exam: moist mucus membranes, pharynx swelling, pharynx tenderness, uvula swelling Neck Exam: lymphadenopathy (R), lymphadenopathy (L), tender lateral Cardiovascular/Respiratory Exam: normal breath sounds, regular rate/rhythm Neurologic Exam: alert, 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, cooperative, manager activities II-XII nml as tested Skin Exam: normal color SpO2 Interpretation: normal SpO2: 100 O2 Delivery: Room Air Ordered Tests: Active Orders 24 hr Category Date Time Status NECK WO CONTRAST [CT] Stat Exams 10/22/24 20:01 Taken Medication Summary Discontinued Medications Generic Name Dose Route Start Last Admin Trade Name Freq PRN Reason Stop Dose Admin Dexamethasone Sodium Phosphate 10 mg 10/22/24 21:23 10/22/24 21:30 Dexamethasone Sod Phosphate 10 Mg/Ml IV 10/22/24 21:24 10 mg STAT ONE Administration Dexamethasone Sodium Phosphate Confirm 10/22/24 21:29 Dexamethasone Sod Phosphate 10 Mg/Ml Administered 10/22/24 21:30 Dose 10 mg .ROUTE .STK-MED ONE Fentanyl Citrate 50 mcg 10/22/24 19:53 10/22/24 20:17 Fentanyl Citrate 100 Mcg/2 Ml* Vial IV 10/22/24 19:54 50 mcg STAT ONE Administration Fentanyl Citrate Confirm 10/22/24 20:14 Fentanyl Citrate 100 Mcg/2 Ml* Vial Administered 10/22/24 20:15 Dose 100 mcg .ROUTE .STK-MED ONE Ondansetron HCl 4 mg 10/22/24 19:53 10/22/24 20:17 Ondansetron Hcl 4 Mg/2 Ml Vial IV 10/22/24 19:54 4 mg STAT ONE Administration Ondansetron HCl Confirm 10/22/24 20:14 Ondansetron Hcl 4 Mg/2 Ml Vial Administered 10/22/24 20:15 Dose 4 mg .ROUTE .STK-MED ONE Lab/Rad Data: Laboratory Results 10/22/24 Range/Units 21:25 Group A Strep Antibody NOT DETECTED (NEGATIVE) - Progress Progress: improved Progress Note: 10/22/24 22:14 Differential diagnosis: Cervical/submandibular lymphadenopathy, acute pharyngitis, neck mass, airway occlusion 44-year-old is evaluated in the ER for neck swelling and pain, had EGD/colonoscopy this afternoon. She has no difficulty speech, some difficulty swallowing solid which is possibly reactionary Has negative strep. Has significant swelling in the submandibular and anterior cervical lymph nodes. Obtain CT neck which is negative for any acute findings, no airway laceration. Patient is given symptomatic treatment and a dose of steroid, feeling better on reevaluation. Recommended outpatient follow-up. Discussed signs symptoms of worsening needing return to ER which patient seems understanding. Stable for discharge. Complexity of problems addressed: Moderate acute Complexity of data reviewed/analyzed: Moderate Risk of complication: Low Counseled pt/family regarding: lab results, diagnosis, need for follow-up, rad results Medical Desision Making - Diagnostic Testing Diagnostic test were ordered, analyzed, and reviewed by me: Yes Radiological Interpretation: Reviewed by me, Teleradiologist Report - Risk of complications The pt has a mod risk of morbidity or mortality based on: Need for prescription drug management - Departure Departure Disposition: Home Clinical Impression: Acute pharyngitis, Lymphadenopathy Condition: Stable Critical Care Time: No Referrals: MARCELINA LIRIANO [Primary Care Provider, [facility]] - Follow up with PCP 1 day Instructions: Sore Throat, Adult (DC) Additional Instructions: Take Tylenol as needed. Follow-up with primary care for reevaluation. Return to ER for increasing pain swelling, difficulty swallowing/breathing or if devel op fever chills etc.
[2024-10-22] MEDS ORDERED: SUBLIMAZE 100 MCG/2 ML ONE (20:14)
[2024-10-22] MEDS ORDERED: Zofran 4 MG/2 ML VIAL ONE (20:14)
[2024-10-22] MEDS: SUBLIMAZE 100 MCG/2 ML IV ONE (20:17)
[2024-10-22] MEDS: Zofran 4 MG/2 ML VIAL IV ONE (20:17)
[2024-10-22 21:11] VITALS: RESP 14
[2024-10-22] MEDS ORDERED: DECADRON 10MG INJ. ONE (21:29)
[2024-10-22] MEDS: DECADRON 10MG INJ. IV ONE (21:30)
[2024-10-22 22:05] VITALS: BP 97/57; PULSE 44
[2024-10-22 22:19] VITALS: O2SAT 100
--- NOTE | 2024-10-23 08:46 | XRAY ---
Indication: Neck swelling/pain. Status post endoscopy. Multiple contiguous axial images obtained through the neck without contrast. Comparison: None Multiple bilateral dental amalgams produces beam artifact limiting these levels. Parotid and submandibular glands are bilaterally symmetric. Small scattered centimeter/subcentimeter cervical and submandibular lymph nodes, none pathologically enlarged.. Thyroid gland homogeneous. Supra-and infraglottic airway are widely patent. Normal epiglottis. Base of brain and lung apices are unremarkable. Osseous structures including visualized cervical spine intact. Impression: Negative CT neck without contrast exam.
== END 2024-10-22 22:29 | disposition home or self-care (01) ==
LOC: ED 19:18
DX: J02.9 Acute pharyngitis, unspecified (principal); R59.0 Localized enlarged lymph nodes; Z79.899 Other long term (current) drug therapy
CPT/HCPCS: 70490; 87651; 96374; 96375; 99284; J1100; J2405; J3010